=== PATIENT | female | born 1985 | race Caucasian/White ===

== ENCOUNTER 2016-05-19 23:39 | Emergency (ER) | payer OTHER ==
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
[2016-05-20 03:44] VITALS: BP 110/79
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
== END 2016-05-20 03:59 | disposition home or self-care (01) ==
LOC: ED 23:39
DX: S00.93XA Contusion of unspecified part of head, initial encounter (principal); M54.2 Cervicalgia; R51 Headache; F17.210 Nicotine dependence, cigarettes, uncomplicated; K08.89 Other specified disorders of teeth and supporting structures; Y09 Assault by unspecified means; Y93.9 Activity, unspecified; Y92.9 Unspecified place or not applicable
CPT/HCPCS: 70450; 70486; 72125; 99283

== ENCOUNTER → 2016-11-06 07:58 | Emergency (ER) | payer OTHER ==
[~2016-11-06 07:58] MED LIST: Ketorolac INJ* 30 MG/ML 1 ML VIAL IV ONE; NS 0.9% 1000 ML* 1,000 ML IV ONE
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
[2016-11-06 09:34] LABS: Hematocrit 35 % (35-47); Hemoglobin 11.1 g/dl (12.0-16.0); Mean Corpuscular HGB Conc 32 g/dl (31-36); Mean Corpuscular Hemoglobin 24 pg (27-31); Mean Corpuscular Volume 77 fL (80-97); Mean Platelet Volume 9 um3 (7.4-10.4); Red Blood Count 4.55 10^6/ul (4.0-5.4); Red Cell Distribution Width 15 % (10.5-15); White Blood Count 9.4 10^3/ul (3.5-10.8)
[2016-11-06 09:51] LABS: ALT 8 U/L (7-52); AST 11 U/L (13-39); Albumin 4.1 g/dL (3.2-5.2); Alkaline Phosphatase 47 U/L (34-104); Anion Gap 7 mmol/L (2-11); BUN/Creatinine Ratio 13.4 (8-20); Blood Urea Nitrogen 11 mg/dL (6-24); CO2 Carbon Dioxide 25 mmol/L (22-32); Calcium 8.9 mg/dL (8.6-10.3); Chloride 105 mmol/L (101-111); EGFR African American 106.8 (>60); Globulin 2.9 g/dL (2-4); Glucose 75 mg/dL (70-100); Potassium 3.5 mmol/L (3.5-5.0); Sodium 137 mmol/L (133-145)
[2016-11-06 10:12] LABS: Alcohol < 10 mg/dL (<10)
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
[2016-11-06 12:21] VITALS: BP 110/79
[2016-11-06 13:03] LABS: Urine Bacteria 1+ (Absent); Urine Bilirubin Negative (Negative); Urine Glucose Negative (Negative); Urine Nitrite Positive (Negative)
[2016-11-06 13:14] LABS: Benzodiazepine Urine Screen None Detected (None Detect)
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
--- NOTE | 2016-11-08 09:23 | PN ---
Progress Note - Progress Note Date of Service: 11/08/16 Note: Patient urine grew E coli >100,000. patient placed on cipro will wait for final cultures.
== END | disposition home or self-care (01) ==
LOC: ED 07:58
DX: S00.93XA Contusion of unspecified part of head, initial encounter (principal); M54.2 Cervicalgia; F19.10 Other psychoactive substance abuse, uncomplicated; W18.2XXA Fall in (into) shower or empty bathtub, initial encounter; Y93.9 Activity, unspecified; Y92.9 Unspecified place or not applicable
CPT/HCPCS: 36415; 70450; 72125; 72170; 80053; 80307; 80320; 81003; 81015; 84702; 85025; 87077; 87086; 87186; 96374; 99282; G0480; J1885

== ENCOUNTER 2016-12-13 18:06 | Emergency (ER) | payer OTHER ==
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
--- NOTE | 2016-12-13 18:50 | RAD ---
INDICATION: Chest injury COMPARISON: Chest x-ray July 17, 2013 TECHNIQUE: An AP portable view obtained at 1846 hours is submitted. FINDINGS: Bones/Soft Tissues: There are no acute bony findings. A detailed rib series is a more sensitive means to evaluate for rib fractures. Cardiomediastinal: The cardiomediastinal silhouette is normal. There is minimal mediastinal shift to the right Lungs: There are no infiltrates. There is a 50% left sided pneumothorax. Pleura: There are no pleural effusions. Other: None IMPRESSION: LARGE LEFT PNEUMOTHORAX UNDER MILD TENSION. Findings called to ED.
[2016-12-13] MEDS ORDERED: Morphine INJ* 2 MG/ML 1 ML CARPUJECT IV ONE ×2 (19:17→20:46)
[2016-12-13 19:47] LABS: Hematocrit 38 % (35-47); Hemoglobin 11.8 g/dl (12.0-16.0); Mean Corpuscular HGB Conc 31 g/dl (31-36); Mean Corpuscular Hemoglobin 23 pg (27-31); Mean Corpuscular Volume 74 fL (80-97); Mean Platelet Volume 9 um3 (7.4-10.4); Red Cell Distribution Width 15 % (10.5-15); White Blood Count 24.8 10^3/ul (3.5-10.8)
[2016-12-13 19:49] LABS: Add Diff/Slide Review? Slide Review Added; Comments Flag Yes
[2016-12-13 20:02] LABS: Albumin 4.5 g/dL (3.2-5.2); BUN/Creatinine Ratio 14.6 (8-20); Calcium 9.6 mg/dL (8.6-10.3); EGFR Non-African American 82.4 (>60); Globulin 3.4 g/dL (2-4); Magnesium 2.5 mg/dL (1.9-2.7); Potassium 3.7 mmol/L (3.5-5.0); Total Bilirubin 0.3 mg/dL (0.2-1.0); Total Protein 7.9 g/dL (6.4-8.9)
[2016-12-13] MEDS ORDERED: Iohexol 300* (CONTRAST) 10 ML SDV IV ONE (20:11)
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
[2016-12-13 21:24] VITALS: BP 125/78
== END 2016-12-13 21:20 | disposition short-term general hospital (02) ==
LOC: ED 18:06
DX: S27.0XXA Traumatic pneumothorax, initial encounter (principal); R51 Headache; F17.210 Nicotine dependence, cigarettes, uncomplicated; F41.8 Other specified anxiety disorders; F31.9 Bipolar disorder, unspecified; F43.10 Post-traumatic stress disorder, unspecified; V03.90XA Pedestrian on foot injured in collision with car, pick-up truck or van, unspecified whether traffic or nontraffic accident, initial encounter; Y92.89 Other specified places as the place of occurrence of the external cause; Z53.29 Procedure and treatment not carried out because of patient's decision for other reasons
CPT/HCPCS: 36415; 71010; 80053; 82550; 82553; 83605; 83735; 83874; 83880; 84484; 85025; 85610; 85730; 96374; 96375; 96376; 99283; J2270

== ENCOUNTER 2017-01-11 16:49 | Emergency (ER) | payer OTHER ==
[2017-01-11 17:13] VITALS: BP 144/69
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
== END 2017-01-11 19:27 | disposition home or self-care (01) ==
LOC: UCEAST 16:49
DX: K08.89 Other specified disorders of teeth and supporting structures (principal); N39.0 Urinary tract infection, site not specified; Z32.02 Encounter for pregnancy test, result negative; R03.0 Elevated blood-pressure reading, without diagnosis of hypertension; Z87.440 Personal history of urinary (tract) infections; R07.81 Pleurodynia; R51 Headache; F12.90 Cannabis use, unspecified, uncomplicated; F17.210 Nicotine dependence, cigarettes, uncomplicated
CPT/HCPCS: 81003; 84702; 87086; 99212; G0463

== ENCOUNTER 2017-10-11 14:37 | Emergency (ER) | payer SELFPAY ==
[2017-10-11] MEDS ORDERED: Ibuprofen TAB* 400 MG PO ONE (16:00)
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
[2017-10-11 17:46] VITALS: BP 114/75
== END 2017-10-11 17:45 | disposition home or self-care (01) ==
LOC: ED 14:37
DX: S43.402A Unspecified sprain of left shoulder joint, initial encounter (principal); S63.615A Unspecified sprain of left ring finger, initial encounter; S50.11XA Contusion of right forearm, initial encounter; S20.219A Contusion of unspecified front wall of thorax, initial encounter; S00.11XA Contusion of right eyelid and periocular area, initial encounter; S80.211A Abrasion, right knee, initial encounter; S60.415A Abrasion of left ring finger, initial encounter; Y04.2XXA Assault by strike against or bumped into by another person, initial encounter; Y93.9 Activity, unspecified; Y92.003 Bedroom of unspecified non-institutional (private) residence as the place of occurrence of the external cause; J44.9 Chronic obstructive pulmonary disease, unspecified; F41.9 Anxiety disorder, unspecified; F32.9 Major depressive disorder, single episode, unspecified; Z82.49 Family history of ischemic heart disease and other diseases of the circulatory system; Z91.030 Bee allergy status; Z91.040 Latex allergy status; Z91.018 Allergy to other foods; Z88.8 Allergy status to other drugs, medicaments and biological substances; Z83.3 Family history of diabetes mellitus; Z84.1 Family history of disorders of kidney and ureter; Z83.6 Family history of other diseases of the respiratory system; Z81.8 Family history of other mental and behavioral disorders; F17.210 Nicotine dependence, cigarettes, uncomplicated
CPT/HCPCS: 99282; A9270-GY

== ENCOUNTER 2018-09-01 14:02 | Emergency (ER) | payer OTHER ==
[2018-09-01 14:59] VITALS: BP 136/88
[2018-09-01] MEDS ORDERED: Ipratropium 0.5MG/2.5ML NEB* 0.5 MG/2.5 ML NEB.SOLN INH ONE (15:48)
[2018-09-01] MEDS ORDERED: Albuterol 2.5 MG/3 ML NEB.SOL* (0.083%) INH ONE (15:48)
[2018-09-01] MEDS ORDERED: predniSONE TAB* 20 MG PO ONE (15:48)
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
== END 2018-09-01 16:40 | disposition home or self-care (01) ==
LOC: UCEAST 14:02
DX: J20.9 Acute bronchitis, unspecified (principal); J45.909 Unspecified asthma, uncomplicated; F41.9 Anxiety disorder, unspecified; F32.9 Major depressive disorder, single episode, unspecified; Z91.030 Bee allergy status; Z91.040 Latex allergy status; Z88.8 Allergy status to other drugs, medicaments and biological substances; Z91.018 Allergy to other foods; Z91.09 Other allergy status, other than to drugs and biological substances; F17.210 Nicotine dependence, cigarettes, uncomplicated
CPT/HCPCS: 71046; 81003; 99212; G0463; J7512

== ENCOUNTER 2019-01-21 19:07 | Emergency (ER) | payer OTHER ==
--- OUTSIDE RECORDS SUMMARY | 2019-01-21 19:14 | XMS REPORT | Summary of Care ---
:1985 Author Organization [facility] Address 1 [facility] [place] [address] Care Team Providers Name Role Phone Sean Montano DO Primary Care Provider Reason for Visit Reason Comments Abnormal Liver Enzyme New pt. referred by Dr. Montano for elevated LFTs. Refer to Department Only (Routine) Status Reason Specialty Diagnoses / Referred By Referred To Procedures Contact Contact Closed Gastroenterology Diagnoses Elevated LFTs Sean Montano DO [address] Gastroenterology/ [place] [address] Hepatology Phone: [address] [place] [address] [place] [address] Encounter Details Date Type Department Care Team Description 12/10/2018 Office Visit Geovanna Gamez, Elevated LFTs Gastroenterology/Hepa Tootie Davis NP (Primary Dx) tology [address] [place] [address] [place] [address] [phone] Allergies Active Allergy Reactions Severity Noted Date Comments Bee Sting Swelling 12/14/2016 Ondansetron Respiratory Reaction 12/14/2016 Pt states her throat swelled when given IVP. documented as of this encounter (statuses as of 12/10/2018) Medications Medication Sig Dispensed Refills Start Date End Date Status Doxepin HCl, Take 50 mg by 0 Active Antipruritic, mouth EVERY (DOXEPIN HCL EX) BEDTIME. albuterol Take 2 Puffs by 0 Active (PROVENTIL,VENTOLIN) inhalation FOUR 90 mcg/act TIMES DAILY. fluticasone-salmetero Take 1 INHL by 60 Each 0 07/01/2018 Active l diskus (ADVAIR) inhalation 500-50 MCG/DOSE TWICE DAILY. Inhalation AEROSOL POWDER, BREATH ACTIVATEDIndications: Asthma, unspecified asthma severity, unspecified whether complicated, unspecified whether persistent hydrOXYzine HCL Take 20 mg by 0 Active (ATARAX) 10 MG Oral mouth DAILY. Tab ferrous sulfate 325 Take 1 Tab by 30 Tab 0 08/12/2018 Active (65 Fe) MG Oral Tab mouth EVERY OTHER DAY. methocarbamol TAKE 1 TABLET 120 Tab 0 09/08/2018 Active (ROBAXIN) 500 MG Oral BY MOUTH FOUR Tab TIMES DAILY Omeprazole 40 MG Oral TAKE 1 CAPSULE 30 Cap 0 09/08/2018 Active CAPSULE DELAYED BY MOUTH EVERY RELEASEIndications: DAY BEFORE Gastroesophageal BREAKFAST reflux disease, esophagitis presence not specified Fluoxetine HCl 40 MG Take 2 Caps by 0 Active Oral Cap mouth DAILY. FLUOXETINE HCL, PMDD, Take 40 mg by 0 12/11/19 Discontinued PO mouth DAILY. 19 documented as of this encounter (statuses as of 12/10/2018) Active Problems Problem Noted Date Traumatic pneumothorax 12/14/2016 Closed fracture of multiple ribs of left side 12/14/2016 UTI (urinary tract infection) 12/14/2016 Abdominal pain, unspecified site 04/17/2006 Asthma documented as of this encounter (statuses as of 12/10/2018) Immunizations Name Administration Dates Next Due Influenza Virus Vaccine Pres Free 6-35 Months 12/16/2016 documented as of this encounter Social History Tobacco Use Types Packs/Day Years Used Date Current Some Day Smoker Cigarettes Smokeless Tobacco: Former User Comments: just e cig now. Alcohol Use Drinks/Week oz/Week Comments No Sex Assigned at Date Recorded Not on file Job Start Date Occupation Industry Not on file Not on file Not on file Travel History Travel Start Travel End No recent travel history available. documented as of this encounter Last Filed Vital Signs Vital Sign Reading Time Taken Comments Blood Pressure 108/68 12/10/2018 11:14 AM EDT Pulse 84 12/10/2018 11:14 AM EDT Temperature 36.7 12/10/2018 11:14 AM EDT C (98.1 F) Respiratory Rate - - Oxygen Saturation - - Inhaled Oxygen Concentration - - Weight 86.9 kg (191 lb 8 oz) 12/10/2018 11:14 AM EDT Height 167.6 cm (5' 6") 12/10/2018 11:14 AM EDT Body Mass Index 30.91 12/10/2018 11:14 AM EDT documented in this encounter Patient Instructions Patient InstructionsTootie Gamez NP - 12/10/2018 11:20 AM EDT1. Would advise we recheck the liver enzymes again in 2 month 2. Avoid high sugar foods, avoid the lemonade and noodles as discussed 3. Follow up after the above Thank you for choosing the [facility] for your needs today! -Tootie Gamez N.P. , Please call if you need to cancel or change your appt. time. Thank you for choosing [facility] for your health care needs, and for consulting with [facility] today. You may receive a survey following this visit, or after an upcoming hospital stay. As easy as it is to feel overloaded with surveys, we are required to send them out randomly and they do provide important feedback so that we may serve your needs in the best way. Please do take the few minutes required to complete the survey if you receive one. We get them too, after seeing the doctor, and they only take a few minutes to complete. documented in this encounter Progress Notes Tootie Gamez NP - 12/10/2018 11:20 AM EDT PATIENT:Antonia Arriaga : 1985 DATE OF SERVICE: 12/10/2018 Chief Complaint Patient presents with Abnormal Liver Enzyme New pt. referred by Dr. Montano for elevated LFTs. SUBJECTIVE: Antonia Arriaga is a very pleasant 33-y.o. female who presents to us today at the request of Sean Montano for abnormal liver enzymes. The elevations were noted during routine bloodwork. There has been no history of clinical hepatitis with jaundice. There are new medications, she reports being on an antibiotic briefly a few weeks ago. She also reports having some alcohol around that time as well. 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 Previous labs have ruled out viral hepatitis, iron overload, celiac, alpha 1 antitrypsin, myositis, thyroid dysfunction, and julianna torres. Denies abdominal pain,heartburn, dysphagia, fatigue, nausea, vomiting, melena, hematemesis, hematochezia, constipation, diarrhea, jaundice, fevers, chills, night sweats, weight loss, easy bruising, chest pain, shortness of breath, dysuria, hematuria, pyuria, joint pains, acholic stools, dark urine or systemic pruritis. Component Latest Ref Rng & Units 12/13/2016 07/01/2018 11/25/2018 12/01/2018 11:04 PM 2:31 PM 12:06 PM 3:13 PM Glucose (Lab) 70 - 99 mg/dl 120 (H) 73 108 (H) 114 (H) Protein,Total 6.3 - 8.2 g/dl 7.7 8.0 7.7 9.0 (H) Total Bilirubin 0.0 - 1.1 MG/DL 0.5 0.5 0.9 1.0 AST 15 - 46 U/L 29 49 (H) 52 (H) 64 (H) ALT 9 - 52 U/L 30 24 446 (H) 164 (H) ALKALINE PHOSPHATASE 40 - 150 U/L 58 70 199 (H) 142 Past Medical History: Diagnosis Date Asthma Pneumothorax Rib fracture Past Surgical History: Procedure Laterality Date SECTION NEC 4 times. LAPAROSCOPIC TUBAL LIGATION Social History Socioeconomic History Marital status: Single Spouse name: Not on file Number of children: Not on file Years of education: Not on file Highest education level: Not on file Occupational History Not on file Social Needs Financial resource strain: Not on file Food insecurity: Worry: Not on file Inability: Not on file Transportation needs: Medical: Not on file Non-medical: Not on file Tobacco Use Smoking status: Current Some Day Smoker Types: Cigarettes Smokeless tobacco: Former User Tobacco comment: just e cig now. Substance and Sexual Activity Alcohol use: No Drug use: Yes Types: Marijuana Comment: in past: meth, cocaine. did IV Sexual activity: Yes Partners: Male control/protection: Surgical Lifestyle Physical activity: Days per week: Not on file Minutes per session: Not on file Stress: Not on file Relationships Social connections: Talks on phone: Not on file Gets together: Not on file Attends pentecostal service: Not on file Active member of club or organization: Not on file Attends meetings of clubs or organizations: Not on file Relationship status: Not on file Intimate partner violence: Fear of current or ex partner: Not on file Emotionally abused: Not on file Physically abused: Not on file Forced sexual activity: Not on file Other Topics Concern Back Care Not Asked Bike Helmet Not Asked Blood Transfusions Not Asked Caffeine Concern Not Asked Exercise Not Asked Hobby Hazards Not Asked International Travel Not Asked Service Not Asked Occupational Exposure Not Asked Seat Belt Not Asked Self-Exams Not Asked Sleep Concern Not Asked Special Diet Not Asked Stress Concern Not Asked Weight Concern Not Asked Social History Narrative Not working 4 children Bee sting and Zofran [ondansetron] Current Outpatient Medications Medication Sig albuterol (PROVENTIL,VENTOLIN) 90 mcg/act Take 2 Puffs by inhalation FOUR TIMES DAILY. Doxepin HCl, Antipruritic, (DOXEPIN HCL EX) Take 50 mg by mouth EVERY BEDTIME. ferrous sulfate 325 (65 Fe) MG Oral Tab Take 1 Tab by mouth EVERY OTHER DAY. Fluoxetine HCl 40 MG Oral Cap Take 2 Caps by mouth DAILY. fluticasone-salmeterol diskus (ADVAIR) 500-50 MCG/DOSE Inhalation AEROSOL POWDER, BREATH ACTIVATED Take 1 INHL by inhalation TWICE DAILY. hydrOXYzine HCL (ATARAX) 10 MG Oral Tab Take 20 mg by mouth DAILY. methocarbamol (ROBAXIN) 500 MG Oral Tab TAKE 1 TABLET BY MOUTH FOUR TIMES DAILY Omeprazole 40 MG Oral CAPSULE DELAYED RELEASE TAKE 1 CAPSULE BY MOUTH EVERY DAY BEFORE BREAKFAST No current facility-administered medications for this visit. All remaining review of systems was negative except for as noted in the history of present illness/subjective. OBJECTIVE: BP 108/68 | Pulse 84 | Temp 98.1 F (36.7 C) | Ht 5' 6" (1.676 m) | Wt 191 lb 8 oz (86.9 kg) | BMI 30.91 kg/m Physical Examination: GENERAL: alert, oriented, no acute distress. HEENT: No scleral icterus, MMM Psych: Affect normal Neck: no lymphadenopathy LUNGS: clear to auscultation bilaterally. HEART: regular rhythm, no murmurs, no gallops, no rubs. ABDOMEN: general exam: soft, non-tender, non-distended, without masses or organomegaly, normal active bowel sounds, Adame's sign negative. Extremities: no edema Skin: clear Neuro: gait normal, a&o x 3 RECTAL: exam deferred. Impression/Plan ICD-9-CM ICD-10-CM 1. Elevated LFTs 790.6 R94.5 REFER TO GI LIVER FUNCTION PROFILE Patient Instructions 1. Would advise we recheck the liver enzymes again in 2 month 2. Avoid high sugar foods, avoid the lemonade and noodles as discussed 3. Follow up after the above Thank you for choosing the [facility] for your needs today! -Tootie Gamez N.P. , Please call if you need to cancel or change your appt. time. Thank you for choosing [facility] for your health care needs, and for consulting with [facility] today. You may receive a survey following this visit, or after an upcoming hospital stay. As easy as it is to feel overloaded with surveys, we are required to send them out randomly and they do provide important feedback so that we may serve your needs in the best way. Please do take the few minutes required to complete the survey if you receive one. We get them too, after seeing the doctor, and they only take a few minutes to complete. AUTHOR: Tootie Gamez NP Section of Gastroenterology 12/10/2018 12:29 documented in this encounter Plan of Treatment Date Type Specialty Care Team Description 02/08/2019 Lab Internal Medicine 02/15/2019 Office Visit Gastroenterology Tootie Gamez NP [address] [facility] [place] [address] [phone] Name Type Priority Associated Diagnoses Order Schedule LIVER FUNCTION PROFILE Lab Routine Elevated LFTs Expected: 12/10/2018 (Approximate), Expires: 03/11/2019 Health Maintenance Due Date Last Done Comments PAP SMEAR 1985 PNEUMOCOCCAL 0-64 YRS (1 of 1 - 11/27/1993 PPSV23) DEPRESSION SCREENING 1999 INFLUENZA VACCINE (#1) 2018 HIV SCREENING Completed 07/01/2018 HPV IMMUNIZATION SERIES Aged Out No longer eligible based on patient's age to complete this topic MENINGOCOCCAL VACCINE IMM Aged Out No longer eligible based on patient's age to complete this topic documented as of this encounter Results Not on filedocumented in this encounter Visit Diagnoses Diagnosis Elevated LFTs - Primary Other abnormal blood chemistry documented in this encounter documented as of this encounter
--- OUTSIDE RECORDS SUMMARY | 2019-01-21 19:14 | XMS REPORT | Continuity of Care Document ---
:1985 External Reference #:[id number] Author Name Wilton Crespo MD (transmitted by agent of provider Marian Smith) Address [address] [place] [address] Care Team Providers Name Role Phone [facility] - Care Team Information Filter Screen Cleaner Mental Health Sean Montano D.O. - Family Medicine Care Team Information Filter Screen Cleaner [phone] Problems Active Problems Provider Date Tension-type headache Jim Barksdale M.D. Onset: 08/23/2008 Head Neck & Trunk Problem Other Jim Barksdale M.D. Onset: 08/23/2008 Low back pain Jim Barksdale M.D. Onset: 08/23/2008 Tension-type headache Jim Barksdale M.D. Onset: 08/23/2008 Chronic hepatitis C Rodney Arriaga M.D. Onset: 02/16/2015 Migraine Rodney Arriaga M.D. Onset: 02/16/2015 Sprain, tarsometatarsal joint Wilton Crespo MD Onset: 01/04/2019 Traumatic pneumothorax without open wound Ash Richardson M.D. Onset: 12/17 into thorax Major depressive disorder, single Ash Richardson M.D. Onset: 05/13/2016 episode, unspecified Migraine without aura, not refractory Ash Richardson M.D. Onset: 2016 Social History Type Date Description Comments Sex Unknown ETOH Use Denies alcohol use Tobacco Use Start: Unknown Patient is a current He used to smoke smoker, smokes some 1.5 PPD x 4 yeras days then smokes 1 pack every 1.5 weeks for 14 years Recreational Drug Use Former Drug User Marijuan, a couple times a week. Quit in 2208 Smoking Status Reviewed: 01/04/19 Patient is a current He used to smoke smoker, smokes some 1.5 PPD x 4 yeras days then smokes 1 pack every 1.5 weeks for 14 years Exercise Type/Frequency Walks daily Allergies, Adverse Reactions, Alerts Active Allergies Reaction Severity Comments Date Vicodin 08/23/2008 Zofran 08/23/2008 Medications Active Medications SIG Qnty Indications Ordering Provider Date Meloxicam 1 tab by mouth 90tabs Wilton Crespo MD 01/04/2019 7.5mg Tablets qdaily with food, as needed Oxycodone HCL 1 by mouth every 60tabs S27.0xxA Ash Richardson, 2016 5mg 6 hours as M.DVinayak Tablets needed Medications Administered in Office Medication SIG Qnty Indications Ordering Provider Date MUSTAPHA Richardson M.D. 03/19/2017 Injection Immunizations Description No Information Available Vital Signs Date Vital Result Comment 01/04/2019 3:31pm Height 63 inches 5'3" Weight 187.00 lb Heart Rate 93 /min BP Systolic 138 mmHg BP Diastolic 70 mmHg Body Temperature 98.8 F Pain Level 10 BMI (Body Mass Index) 33.1 kg/m2 12/17/2016 1:19pm Height 62.50 inches 5'2.50" Weight 153.50 lb Heart Rate 84 /min BP Systolic 126 mmHg BP Diastolic 68 mmHg Body Temperature 98.4 F O2 % BldC Oximetry 96 % BMI (Body Mass Index) 27.6 kg/m2 Results Description No Information Available Procedures Description No Information Available Medical Devices Description No Information Available Encounters Type Date Location Provider Dx Diagnosis Office Visit 11/20/2018 [facility] [place] [id number] Acute viral 1:22p rhonda Schmitz M.D. hepatitis, Hospitalists unspecified Office Visit 11/19/2018 [facility] [place] Acute viral 1:22p rhonda Schmitz M.D. hepatitis, Hospitalists unspecified Assessments Date Code Description Provider 01/04/2019 S93.621A Sprain of tarsometatarsal ligament of right Wilton Crespo MD foot, initial encounter 11/20/2018 [id number] Acute viral hepatitis, unspecified Flor Aly M.D. 11/19/2018 B17.9 Acute viral hepatitis, unspecified Flor Aly M.D. Plan of Treatment 01/04/2019 - Wilton Crespo, MDS93.621A Sprain of tarsometatarsal ligament of right foot, initial encounterNew Xrays:MRI Lower Extremity Right W/O, Ordered: 01/04/19Follow up:Follow Up: after testing / imaging is completed Functional Status Description No Information Available Mental Status Description No Information Available Referrals Description No Information Available
--- OUTSIDE RECORDS SUMMARY | 2019-01-21 19:14 | XMS REPORT | Summary of Care ---
:1985 Author Organization [facility] Address [address] [facility] [place] [address] Care Team Providers Name Role Phone Sean Montano DO Primary Care Provider Reason for Referral Refer to Department Only (Routine) Status Reason Specialty Diagnoses / Referred By Referred To Procedures Contact Contact Pending Review Gastroenterology Diagnoses Elevated LFTs Sean Montano [place] DO Gastroenterolog [address] [place], [place] [address] [address] [place], [place] Phone: [phone] Phone: Scheduling Instructions Is the patient on cpap machine?No Is the patient on oxygen?No BP 118/68 (BP Location: Left arm, Patient Position: Sitting) | Pulse 98 | Ht 5' 6" (1.676 m) | Wt 185 lb 6.4 oz (84.1 kg) | SpO2 98% | BMI 29.92 kg/m BMI Readings from Last 4 Encounters: 11/25/18 : 29.92 kg/m 08/12/18 : 29.75 kg/m 07/01/18 : 26.92 kg/m 12/13/16 : 25.02 kg/m Controlled Substance Medications: Anticoagulant Medications: Psychiatric/Antianxiety Medications: hydrOXYzine HCL Antiretroviral Medications: Reason for Visit Reason Comments Transitional Care Management here for follow up/ [facility]; states continues to feel dizziness periodically'; but overall feel much better Encounter Details Date Type Department Care Team Description 11/25/2018 Office Visit [facility] Sean Montano DO Elevated LFTs (Primary Practice [address]) [address] [place] [address] [place] [address] [phone] Allergies Active Allergy Reactions Severity Noted Date Comments Bee Sting Swelling 12/14/2016 Ondansetron Respiratory Reaction 12/14/2016 Pt states her throat swelled when given IVP. documented as of this encounter (statuses as of 11/25/2018) Medications Medication Sig Dispensed Refills Start Date End Date Status FLUOXETINE HCL, PMDD, Take 40 mg by 0 Active PO mouth DAILY. Doxepin HCl, 50 mg by Apply 0 Active Antipruritic, (DOXEPIN externally route HCL EX) DAILY. albuterol Take 2 Puffs by 0 Active (PROVENTIL,VENTOLIN) 90 inhalation FOUR mcg/act TIMES DAILY. fluticasone-salmeterol Take 1 INHL by 60 Each 0 07/01/2018 Active diskus (ADVAIR) 500-50 inhalation TWICE MCG/DOSE Inhalation DAILY. AEROSOL POWDER, BREATH ACTIVATEDIndications: Asthma, unspecified asthma severity, unspecified whether complicated, unspecified whether persistent hydrOXYzine HCL Take 10 mg by 0 Active (ATARAX) 10 MG Oral Tab mouth TWICE DAILY. ferrous sulfate 325 (65 Take 1 Tab by 30 Tab 0 08/12/2018 Active Fe) MG Oral Tab mouth EVERY OTHER DAY. methocarbamol (ROBAXIN) TAKE 1 TABLET BY 120 Tab 0 09/08/2018 Active 500 MG Oral Tab MOUTH FOUR TIMES DAILY Omeprazole 40 MG Oral TAKE 1 CAPSULE BY 30 Cap 0 09/08/2018 Active CAPSULE DELAYED MOUTH EVERY DAY RELEASEIndications: BEFORE BREAKFAST Gastroesophageal reflux disease, esophagitis presence not specified documented as of this encounter (statuses as of 11/25/2018) Active Problems Problem Noted Date Traumatic pneumothorax 12/14/2016 Closed fracture of multiple ribs of left side 12/14/2016 UTI (urinary tract infection) 12/14/2016 Abdominal pain, unspecified site 04/17/2006 Asthma documented as of this encounter (statuses as of 11/25/2018) Immunizations Name Administration Dates Next Due Influenza Virus Vaccine Pres Free 6-35 Months 12/16/2016 documented as of this encounter Social History Tobacco Use Types Packs/Day Years Used Date Current Every Day Smoker Cigarettes Smokeless Tobacco: Former User [...] Sign Reading Time Taken Comments Blood Pressure 118/68 11/25/2018 11:21 AM EDT Pulse 98 11/25/2018 11:21 AM EDT Temperature - - Respiratory Rate - - Oxygen Saturation 98% 11/25/2018 11:21 AM EDT Inhaled Oxygen Concentration - - Weight 84.1 kg (185 lb 6.4 oz) 11/25/2018 11:21 AM EDT Height 167.6 cm (5' 6") 11/25/2018 11:21 AM EDT Body Mass Index 29.92 11/25/2018 11:21 AM EDT documented in this encounter Progress Notes Sean Montano, DO - 11/25/2018 11:20 AM EDT PATIENT: Antonia Arriaga : 1985 DATE OF SERVICE: 11/25/2018 CHIEF COMPLAINT: Chief Complaint Patient presents with Transitional Care Management here for follow up/ TCM went [facility] and then to [place] left [facility] on 11/20; states continues to feel dizziness periodically'; but overall feel much better Subjective HISTORY OF PRESENT ILLNESS: Antonia Arriaga is a 32-y.o. female. [facility] follow [facility] DC summary not available Left AMA Reason she went to hospital was epigastric pain, feeling low in energy and diarrhea Found to have markedly elevated Liver enymes Hep panel, autoimmune work up, ceruloplasmin, %saturation negative. GI at [facility] though viral. [place] spot neg. ebv not done cmv negative Mri liver showed periportal edema, small amount of ascites around liver and hepatomegaly. Symptoms resolved but ama left hospital. LFt's were still markedly up on 11/20/18 Past Medical History: Diagnosis Date Asthma Pneumothorax Rib fracture History reviewed. No pertinent family history. Current Outpatient Medications Medication Sig albuterol (PROVENTIL,VENTOLIN) 90 mcg/act Take 2 Puffs by inhalation FOUR TIMES DAILY. Doxepin HCl, Antipruritic, (DOXEPIN HCL EX) 50 mg by Apply externally route DAILY. ferrous sulfate 325 (65 Fe) MG Oral Tab Take 1 Tab by mouth EVERY OTHER DAY. FLUOXETINE HCL, PMDD, PO Take 40 mg by mouth DAILY. fluticasone-salmeterol diskus (ADVAIR) 500-50 MCG/DOSE Inhalation AEROSOL POWDER, BREATH ACTIVATED Take 1 INHL by inhalation TWICE DAILY. hydrOXYzine HCL (ATARAX) 10 MG Oral Tab Take 10 mg by mouth TWICE DAILY. methocarbamol (ROBAXIN) 500 MG Oral Tab TAKE 1 TABLET BY MOUTH FOUR TIMES DAILY Omeprazole 40 MG Oral CAPSULE DELAYED RELEASE TAKE 1 CAPSULE BY MOUTH EVERY DAY BEFORE BREAKFAST No current facility-administered medications for this visit. Allergies Allergen Reactions Bee Sting Swelling Zofran [Ondansetron] Respiratory Reaction Pt states her throat swelled when given IVP. Social History Socioeconomic History Marital status: Single [...] on file Tobacco Use Smoking status: Current Every Day Smoker Types: Cigarettes Smokeless tobacco: Former [...] file Gets together: Not on file Attends restorationist service: Not on file Active member of [...] Social History Narrative Not working 4 children REVIEW OF SYSTEMS: Review of Systems Constitutional: Negative for fever. Cardiovascular: Negative for chest pain. Gastrointestinal: Negative for abdominal pain, blood in stool, constipation, diarrhea, heartburn, melena, nausea and vomiting. Objective PHYSICAL EXAM: VITALS: BP 118/68 (BP Location: Left arm, Patient Position: Sitting) | Pulse 98 | Ht 5' 6" (1.676m) | Wt 185 lb 6.4 oz (84.1 kg) | SpO2 98% | BMI 29.92 kg/m Body mass index is 29.92 kg/m. Physical Exam Constitutional: She appears well-nourished. No distress. HENT: Head: Normocephalic and atraumatic. Mouth/Throat: Oropharynx is clear and moist. No oropharyngeal exudate. Cardiovascular: Normal rate. Pulmonary/Chest: Effort normal and breath sounds normal. Abdominal: She exhibits no distension and no mass. There is no tenderness. There is no rebound and no guarding. Skin: She is not diaphoretic. ASSESSMENT / IMPRESSION: ICD-9-CM ICD-10-CM 1. Elevated LFTs 790.6 R94.5 COMPREHENSIVE METABOLIC PANEL REFER TO GI THYROID STIMULATING HORMONE CREATINE KINASE ALPHA 1 ANTITRYPSIN CELIAC DISEASE PANEL CELIAC DISEASE PANEL ALPHA 1 ANTITRYPSIN CREATINE KINASE THYROID STIMULATING HORMONE COMPREHENSIVE METABOLIC PANEL CELIAC DISEASE PANEL ANA PENALOZA VIRUS ANTIBODY PANEL ANA PENALOZA VIRUS ANTIBODY PANEL INR normal at [place] Plan Trend LFT's. They can lag behind and clinically patient can be better. But 5 days now so expect someimprovement. Avoid tylenol Avoid alcohol Do work up not seen at [place]: tsh, cpk, alpha 1 antitrypsin, celiac and ebv See GI. Uncertain etiology Author: Sean Montano DO 11/25/2018 13:08 documented in this encounter Plan of Treatment Date Type Specialty Care Team Description 12/10/2018 Office Visit Gastroenterology Tootie Gamez, [address] [place] [address] Name Type Priority Associated Diagnoses Date/Time COMPREHENSIVE METABOLIC Lab Routine Elevated LFTs 11/25/2018 12:06 PM EDT PANEL THYROID STIMULATING HORMONE Lab Routine Elevated LFTs 11/25/2018 12:06 PM EDT CREATINE KINASE Lab Routine Elevated LFTs 11/25/2018 12:06 PM EDT ALPHA 1 ANTITRYPSIN Lab Routine Elevated LFTs 11/25/2018 12:06 PM EDT CELIAC DISEASE PANEL Lab Routine Elevated LFTs 11/25/2018 12:06 PM EDT CELIAC DISEASE PANEL Lab Routine Elevated LFTs 11/25/2018 12:06 PM EDT ANA PENALOZA VIRUS ANTIBODY Lab Routine Elevated LFTs 11/25/2018 12:06 PM EDT PANEL Name Type Priority Associated Diagnoses Order Schedule COMPREHENSIVE METABOLIC Lab Routine Elevated LFTs Expected: 11/25/2018 PANEL (Approximate), Expires: 11/26/2019 THYROID STIMULATING HORMONE Lab Routine Elevated LFTs Expected: 11/25/2018 (Approximate), Expires: 11/26/2019 CREATINE KINASE Lab Routine Elevated LFTs Expected: 11/25/2018 (Approximate), Expires: 11/26/2019 ALPHA 1 ANTITRYPSIN Lab Routine Elevated LFTs Expected: 11/25/2018 (Approximate), Expires: 11/26/2019 CELIAC DISEASE PANEL Lab Routine Elevated LFTs Expected: 11/25/2018 (Approximate), Expires: 11/26/2019 ANA PENALOZA VIRUS ANTIBODY Lab Routine Elevated LFTs Expected: 11/25/2018 PANEL (Approximate), Expires: 11/26/2019 Name Type Priority Associated Diagnoses Order Schedule REFER TO GI Referral Routine Elevated LFTs Expected: 11/25/2018, Expires: 11/26/2019 Health Maintenance Due Date Last Done Comments [...] abnormal blood chemistry documented in this encounter Insurance Payer Benefit Plan / Subscriber ID Effective Dates Phone Address Type Group [facility] xxxxxxxxxxx 2017-Present Jason documented as of this encounter
[2019-01-21 19:22] VITALS: BP 115/72
--- NOTE | 2019-01-21 19:43 | UC ---
Ear Complaint HPI - HPI Summary HPI Summary: 33-year-old female who has had cold symptoms for greater than one week and now has bilateral earache as well as sinus pressure and sinus headache. - History of Current Complaint Chief Complaint: UCRespiratory Stated Complaint: EAR ACHE, AND SORE THROAT Time Seen by Provider: 01/21/19 19:37 Hx Obtained From: Patient Hx Last Menstrual Period: 1 day ago ?: No Onset/Duration: Gradual Onset Severity Initially: Mild Severity Currently: Mild Pain Intensity: 3 Aggravating Factors: Nothing Alleviating Factors: Nothing Associated Signs/Symptoms: Positive: URI Symptoms - Allergies/Home Medications Allergies/Adverse Reactions: Allergies Allergy/AdvReac Type Severity Reaction Status Date / Time bee venom protein (honey bee) Allergy Anxiety Verified 01/21/19 19:23 garlic Allergy Swelling Verified 01/21/19 19:23 ondansetron [From Zofran] Allergy Difficulty Verified 01/21/19 19:23 Breathing pollen extracts Allergy Sneezing Verified 01/21/19 19:23 PMH/Surg Hx/FS Hx/Imm Hx Previously Healthy: Yes Other History Of: Negative For: Anticoagulant Therapy - Surgical History Surgical History: Yes Surgery Procedure, Year, and Place: 4 C-SEC (2009/2010/2014) [facility]. 2 [facility] (2008). 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 Smoking Status (MU): Light Every Day Tobacco Smoker Type: Cigarettes Amount Used/How Often: 1 cig/day Length of Time of Smoking/Using Tobacco: 11 years Have You Smoked in the Last Year: Yes Household Exposure Type: Cigarettes - Immunization History Most Recent Influenza Vaccination: Never Most Recent Tetanus Shot: 2016 Most Recent Pneumonia Vaccination: none Review of Systems All Other Systems Reviewed And Are Negative: Yes ENT: Positive: Sore Throat - Sore throat over the past 2 days., Ear Ache - Bilateral earache., Nasal Discharge - Patient states she is blowing out green nasal coryza., Sinus Congestion, Sinus Pain/Tenderness Respiratory: Positive: Cough - Nonproductive cough. Neurological: Positive: Headache - Patient states she has a sinus headache. Is Patient Immunocompromised?: No Physical Exam Triage Information Reviewed: Yes Appearance: Well-Appearing, No Pain Distress, Well-Nourished Vital Signs: Initial Vital Signs Temp 98.4 F 01/21/19 19:18 Pulse 87 01/21/19 19:18 Resp 17 01/21/19 19:18 BP 115/72 01/21/19 19:18 Pulse Ox 100 01/21/19 19:18 Vital Signs Reviewed: Yes Eyes: Positive: Conjunctiva Clear ENT: Positive: Hearing grossly normal, Pharynx normal, Nasal congestion, Nasal drainage - Small amount of yellow nasal coryza., TM red - Left tympanic membrane is mildly erythematous and moderate landmarks. Right tympanic membrane is normal pearly-thurman., Sinus tenderness - Tender over the maxillary sinuses bilaterally., Uvula midline Neck: Positive: Supple, Nontender, No Lymphadenopathy Respiratory: Positive: Lungs clear, Normal breath sounds, No respiratory distress, No accessory muscle use Cardiovascular: Positive: RRR, No Murmur, Pulses Normal, Brisk Capillary Refill Musculoskeletal Exam: Normal Neurological Exam: Normal Psychological Exam: Normal Skin Exam: Normal Ear Complaint Course/Dx - Course Course Of Treatment: Patient is comfortable here. I gave her an injection of Toradol 30 mg IM and 1 dose of amoxicillin 500 mg by mouth here to continue amoxicillin 875 mg by mouth twice a day 10 days. She is to increase fluids and rest. She is to follow-up with [facility] if she has no improvement in 4 or 5 days. - Differential Dx/Diagnosis Provider Diagnosis: Sinusitis, Earache Discharge ED - Sign-Out/Discharge Documenting (check all that apply): Patient Departure All imaging exams completed and their final reports reviewed: No Studies - Discharge Plan Condition: Fair Disposition: HOME Prescriptions: Amoxicillin PO (*) [Amoxicillin 875 MG (*)] 875 mg PO BID 10 Days #19 tab Patient Education Materials: Sinusitis (ED) Referrals: [facility] [Outside] No Primary Care Phys,NOPCP [Primary Care Provider] - Additional Instructions: Increase fluids, rest, follow-up with the [facility] if no improvement in 3 or 4 days. - Billing Disposition and Condition Condition: FAIR Disposition: Home - Attestation Statements Provider Attestation: This patient was not seen by me. Chart reviewed. I was available for consult. PRANEETH
[2019-01-21] MEDS ORDERED: Ketorolac INJ* 30 MG/ML 1 ML VIAL IM ONE (19:51)
[2019-01-21] MEDS ORDERED: Amoxicillin PO (*) 500 MG CAP PO ONE (19:52)
== END 2019-01-21 20:09 | disposition home or self-care (01) ==
LOC: UCEAST 19:07
DX: H92.03 Otalgia, bilateral (principal); J32.9 Chronic sinusitis, unspecified; J02.9 Acute pharyngitis, unspecified; F17.210 Nicotine dependence, cigarettes, uncomplicated; Z91.030 Bee allergy status; Z88.8 Allergy status to other drugs, medicaments and biological substances; Z91.09 Other allergy status, other than to drugs and biological substances
CPT/HCPCS: 96372; 99212; A9270-GY; G0463; J1885

== ENCOUNTER 2019-04-07 10:09 | Emergency (ER) | payer SELFPAY ==
[2019-04-07 10:37] VITALS: BP 124/63
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
[2019-04-07 16:37] LABS: Hematocrit 38 % (35-47); Hemoglobin 12.2 g/dL (12.0-16.0); Mean Corpuscular HGB Conc 33 g/dL (31-36); Mean Corpuscular Hemoglobin 24 pg (27-31); Mean Corpuscular Volume 73 fL (80-97); Mean Platelet Volume 8.4 fL (7.4-10.4); Platelet Count 327 10^3/uL (150-450); Red Blood Count 5.15 10^6 /uL (3.70-4.87); Red Cell Distribution Width 18 % (10-15); White Blood Count 8.5 10^3/uL (3.5-10.8)
[2019-04-07 16:42] LABS: Albumin 4.4 g/dL (3.2-5.2); Calcium 9.5 mg/dL (8.6-10.3); Potassium 4.4 mmol/L (3.5-5.0); Total Bilirubin 0.4 mg/dL (0.2-1.0)
[2019-04-07 16:48] LABS: Albumin/Globulin Ratio 1.7 (1-3); EGFR African American 105.8 (>60); EGFR Non-African American 87.4 (>60); Globulin 2.6 g/dL (2-4)
[2019-04-07 16:58] LABS: ABS Basophils 0.1 10^3/ul (0-0.2); ABS Eosinophils 0.2 10^3/ul (0-0.6); ABS Lymphocytes 2.2 10^3/ul (1.0-4.8); ABS Monocytes 0.6 10^3/ul (0-0.8); ABS Neutrophils 5.5 10^3/ul (1.5-7.7); Eosinophil % 1.9 %; Lymphocyte % 25.6 %
[2019-04-07 17:02] LABS: TSH (Thyroid Stimulating Horm) 2.29 mcIU/mL (0.34-5.60)
== END 2019-04-07 13:12 | disposition home or self-care (01) ==
LOC: UCEAST 10:09
DX: M54.12 Radiculopathy, cervical region (principal); J02.9 Acute pharyngitis, unspecified; H92.09 Otalgia, unspecified ear; Z88.0 Allergy status to penicillin; Z91.030 Bee allergy status; Z91.018 Allergy to other foods; Z88.8 Allergy status to other drugs, medicaments and biological substances; Z91.09 Other allergy status, other than to drugs and biological substances; F17.210 Nicotine dependence, cigarettes, uncomplicated
CPT/HCPCS: 36415; 72050; 80053; 82607; 84443; 85025; 87651; 99212; G0463

== ENCOUNTER 2019-05-20 11:32 | Emergency (ER) | payer OTHER ==
--- OUTSIDE RECORDS SUMMARY | 2019-05-20 11:38 | XMS REPORT | Summary of Care ---
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 [address] [phone] Reason for Visit Reason Comments Check Up pap, hep A, breast exam Encounter Details Date Type Department Care Team Description 04/30/2019 Office Visit [facility] Gabriela Lance 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 documented as of this encounter (statuses as of 04/30/2019) Medications Medication Sig Dispensed Refills Start Date End Date Status Doxepin HCl, Take 50 mg by 0 Active Antipruritic, (DOXEPIN mouth EVERY HCL EX) BEDTIME. albuterol Take 2 Puffs by 0 Active (PROVENTIL,VENTOLIN) 90 inhalation FOUR mcg/act TIMES DAILY. fluticasone-salmeterol Take 1 INHL by 60 Each 0 07/01/2018 Active diskus (ADVAIR) 500-50 inhalation TWICE MCG/DOSE Inhalation DAILY. AEROSOL POWDER, BREATH ACTIVATEDIndications: Asthma, unspecified asthma severity, unspecified whether complicated, unspecified whether persistent hydrOXYzine HCL Take 20 mg by 0 Active (ATARAX) 10 MG Oral Tab mouth DAILY. Fluoxetine HCl 40 MG Take 2 Caps by 0 Active Oral Cap mouth DAILY. tizanidine (ZANAFLEX) 4 Take 1 Tab by 90 Tab 0 02/03/2019 Active MG Oral TabIndications: mouth TWICE Neck pain DAILY. Sofosbuvir-Velpatasvir Take 1 Tab by 28 Tab 2 03/11/2019 Active 400-100 MG Oral Tab mouth DAILY. Omeprazole delayed rel Take 20 mg by 30 Cap 2 03/19/2019 Active cap 20 MG Oral CAPSULE mouth DAILY. Take DELAYED RELEASE this 4 hours AFTER your Velpatasvir/Sofos buvir. cyclobenzaprine Take 1 Tab by 30 Tab 0 03/30/2019 Active (FLEXERIL) 10 MG Oral mouth THREE TIMES TabIndications: Back DAILY NEEDED pain, unspecified back (pain). location, unspecified back pain laterality, unspecified chronicity, Neck pain etodolac (LODINE) 400 Take 400 mg by 60 Tab 0 03/30/2019 Active MG Oral TabIndications: mouth EVERY EIGHT Back pain, unspecified HOURS NEEDED back location, (pain). unspecified back pain laterality, unspecified chronicity, Neck pain methocarbamol (ROBAXIN) Take 1 Tab by 120 Tab 0 04/23/2019 Active 500 MG Oral mouth FOUR TIMES TabIndications: Chronic DAILY. neck pain gabapentin (NEURONTIN) Take 300 mg by 0 Active 300 MG Oral Cap mouth THREE TIMES DAILY. doxycycline Take 100 mg by 14 Tab 0 04/23/2019 Active (VIBRAMYCIN) 100 MG mouth TWICE Oral TabIndications: DAILY. Acute bacterial rhinosinusitis documented as of this encounter (statuses as of 04/30/2019) Active Problems Problem Noted Date Chronic neck pain 04/24/2019 Chronic hepatitis C without hepatic coma 02/16/2019 Traumatic pneumothorax 12/14/2016 Closed fracture of multiple ribs of left side 12/14/2016 UTI (urinary tract infection) 12/14/2016 Abdominal pain, unspecified site 04/17/2006 Asthma documented as of this encounter (statuses as of 04/30/2019) Immunizations Name Administration Dates Next Due Hepatitis A Vaccine-Adult 04/30/2019 Influenza Virus Vaccine Pres Free 6-35 Months 12/16/2016 MENINGOCOCCAL CONJUGATE VACCINE 04/30/2019 documented as of this encounter Social History Tobacco Use Types Packs/Day Years Used Date Current Every Day Smoker Cigarettes 0.25 Smokeless Tobacco: Former User Alcohol Use Drinks/Week oz/Week Comments No Social Isolation Answer Date Recorded In a typical week, how many times do you talk on Twice a week 04/23/2019 the phone with family, friends, or neighbors? How often do you get together with friends or Once a week 04/23/2019 relatives? How often do you attend protestant or mandaeism Never 04/23/2019 services? Do you belong to any clubs or organizations such as No 04/23/2019 protestant groups, unions, fraPaxfire or athletic groups, or school groups? How often do you attend meetings of the clubs or Never 04/23/2019 organizations you belong to? Are you now , , , , Living with partner 2019 never or living with a partner? Physical Activity Answer Date Recorded On average, how many days per week do you engage in moderate to 0 days 2019 strenuous exercise (like walking fast, running, jogging, dancing, swimming, biking, or other activities that cause a light or heavy sweat)? On average, how many minutes do you engage in exercise at this 0 min 2019 level? Stress Answer Date Recorded Do you feel stress - tense, restless, nervous, or anxious, Not at all 2019 or unable to sleep at night because your mind is troubled all the time - these days? Intimate Partner Violence Answer Date Recorded Within the last year, have you been afraid of your partner or No 04/23/2019 ex-partner? Within the last year, have you been humiliated or emotionally No 04/23/2019 abused in other ways by your partner or ex-partner? Within the last year, have you been kicked, hit, slapped, or No 04/23/2019 otherwise physically hurt by your partner or ex-partner? Within the last year, have you been raped or forced to have any No 04/23/2019 kind of sexual activity by your partner or ex-partner? Food Insecurity Answer Date Recorded Within the past 12 months, you worried that your food would Never true 2019 run out before you got money to buy more. Within the past 12 months, the food you bought just didn't Never true 2019 last and you didn't have money to get more. Transportation Needs Answer Date Recorded In the past 12 months, has lack of transportation kept you from No 04/23/2019 medical appointments or from getting medications? In the past 12 months, has lack of transportation kept you from No 04/23/2019 meetings, work, or getting things needed for daily living? Sex Assigned at Date Recorded Not on file Job Start Date Occupation Industry Not on file Not on file Not on file Travel History Travel Start Travel End No recent travel history available. documented as of this encounter Last Filed Vital Signs Vital Sign Reading Time Taken Comments Blood Pressure 136/64 04/30/2019 11:29 AM EST Pulse 108 04/30/2019 11:29 AM EST Temperature 37.4 04/30/2019 11:29 AM EST C (99.4 F) Respiratory Rate - - Oxygen Saturation 99% 04/30/2019 11:29 AM EST Inhaled Oxygen Concentration - - Weight 95.7 kg (211 lb) 04/30/2019 11:29 AM EST Height 157.5 cm (5' 2") 04/30/2019 11:29 AM EST Body Mass Index 38.59 04/30/2019 11:29 AM EST documented in this encounter Patient Instructions Patient InstructionsGabriela Lance NP - 04/30/2019 11:20 AM EST Schedule mammogram and breast ultrasound - for the breast pain. Have the paperwork sent to us from [facility] so I can fill out. You may feel under the weather after receiving the meningitis and hepatitis A vaccine(s), and your arm may be sore - you can take tylenol and ibuprofen over the counter for this. This is an expected immune response to the vaccine. DIET AND EXERCISE: Exercise is recommended 150 minutes weekly: 30 minutes five days a week of moderate exercise such as walking. In addition is it recommended you have two days weekly of working all your major muscle groups (arms, legs) such as with weight lifting or other exercise. I recommend a well balanced healthy diet, portion control, drink plenty of fluids. The Mediterranean diet is an excellent diet. Be sure to get adequate sleep at night, 8 hours. documented in this encounter Progress Notes Gabriela Lance NP - 04/30/2019 11:20 AM EST PATIENT: Antonia Arriaga : 1985 DATE OF SERVICE: 04/30/2019 CHIEF COMPLAINT: Chief Complaint Patient presents with Check Up pap, hep A, breast exam Subjective HISTORY OF PRESENT ILLNESS: Antonia Arriaga is a 33-y.o. female. HPI CPE done last week. Here for pap smear which she wanted to schedule at a different time. URI continues - taking doxycycline for this. Forgot paperwork for school - will get this to us later to fill out. Still needs meningitis vaccine, and would also like Hep A vaccine. Bilat breast pain, not related to her cycle, all the time - very tender. She is concerned because she does not know her family history and would like to be checked for breast cancer. Past Medical History: Diagnosis Date Asthma Chronic neck pain Hepatitis C Multilevel degenerative disc disease Pneumothorax Rib fracture Family History Problem Relation Age of Onset Diabetes Mother Kidney Disease Mother Heart Mother Dementia Father Liver Disease Father No Known Problems Sister No Known Problems Brother No Known Problems Daughter No Known Problems Son No Known Problems Brother No Known Problems Brother No Known Problems Brother No Known Problems Son No Known Problems Daughter Current Outpatient Medications Medication Sig albuterol (PROVENTIL,VENTOLIN) 90 mcg/act Take 2 Puffs by inhalation FOUR TIMES DAILY. cyclobenzaprine (FLEXERIL) 10 MG Oral Tab Take 1 Tab by mouth THREE TIMES DAILY NEEDED (pain). Doxepin HCl, Antipruritic, (DOXEPIN HCL EX) Take 50 mg by mouth EVERY BEDTIME. doxycycline (VIBRAMYCIN) 100 MG Oral Tab Take 100 mg by mouth TWICE DAILY. etodolac (LODINE) 400 MG Oral Tab Take 400 mg by mouth EVERY EIGHT HOURS NEEDED (pain). Fluoxetine HCl 40 MG Oral Cap Take 2 Caps by mouth DAILY. fluticasone-salmeterol diskus (ADVAIR) 500-50 MCG/DOSE Inhalation AEROSOL POWDER, BREATH ACTIVATED Take 1 INHL by inhalation TWICE DAILY. gabapentin (NEURONTIN) 300 MG Oral Cap Take 300 mg by mouth THREE TIMES DAILY. hydrOXYzine HCL (ATARAX) 10 MG Oral Tab Take 20 mg by mouth DAILY. methocarbamol (ROBAXIN) 500 MG Oral Tab Take 1 Tab by mouth FOUR TIMES DAILY. Omeprazole delayed rel cap 20 MG Oral CAPSULE DELAYED RELEASE Take 20 mg by mouth DAILY. Takethis 4 hours AFTER your Velpatasvir/Sofosbuvir. Sofosbuvir-Velpatasvir 400-100 MG Oral Tab Take 1 Tab by mouth DAILY. tizanidine (ZANAFLEX) 4 MG Oral Tab Take 1 Tab by mouth TWICE DAILY. No current facility-administered medications for this visit. Allergies Allergen Reactions Amoxicillin Dermatologic Reaction Hives Bee Sting Swelling Zofran [Ondansetron] Respiratory Reaction Pt states her throat swelled when given IVP. Social History Socioeconomic History Marital status: Single Spouse name: Not on file Number of children: Not on file Years of education: Not on file Highest education level: Not on file Occupational History Not on file Social Needs Financial resource strain: Not on file Food insecurity Worry: Never true Inability: Never true Transportation needs Medical: No Non-medical: No Tobacco Use Smoking status: Current Every Day Smoker Packs/day: 0.25 Types: Cigarettes Smokeless tobacco: Former User Substance and Sexual Activity Alcohol use: No Drug use: Not Currently Types: Marijuana Comment: in past: meth, cocaine. did IV - Dec 2017 stopped. Sexual activity: Yes Partners: Male control/protection: Surgical Lifestyle Physical activity Days per week: 0 days Minutes per session: 0 min Stress: Not at all Relationships Social connections Talks on phone: Twice a week Gets together: Once a week Attends mandaeism service: Never Active member of club or organization: No Attends meetings of clubs or organizations: Never Relationship status: Living with partner Intimate partner violence Fear of current or ex partner: No Emotionally abused: No Physically abused: No Forced sexual activity: No Other Topics Concern Back Care Not Asked Bike Helmet Not Asked Blood Transfusions Not Asked Caffeine Concern Not Asked Exercise Not Asked Hobby Hazards Not Asked International Travel Not Asked Service Not Asked Occupational Exposure Not Asked Seat Belt Not Asked Self-Exams Not Asked Sleep Concern Not Asked Special Diet Not Asked Stress Concern Not Asked Weight Concern Not Asked Social History Narrative Lives with significant other and step child. Not working. 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 4 children REVIEW OF SYSTEMS: Review of Systems HENT: Positive for congestion. Eyes: Positive for discharge (clear). Gastrointestinal: Negative for abdominal pain. Genitourinary: Negative for dysuria, frequency, hematuria and urgency. Musculoskeletal: Positive for back pain (chronic) and myalgias (bilat breast pain). Objective PHYSICAL EXAM: VITALS: BP 136/64 (BP Location: Left arm, Patient Position: Sitting) | Pulse 108 | Temp 99.4 F (37.4 C) (Tympanic) | Ht 5' 2" (1.575 m) | Wt 211 lb (95.7 kg) | SpO2 99% | BMI 38.59 kg/m Body mass index is 38.59 kg/m . Physical Exam Vitals signs reviewed. Constitutional: General: She is not in acute distress. Appearance: Normal appearance. She is not ill-appearing. Chest: Breasts: Right: Tenderness present. No swelling, bleeding, inverted nipple, mass, nipple discharge or skin change. Left: Tenderness present. No swelling, bleeding, inverted nipple, mass, nipple discharge or skin change. Genitourinary: Vagina: No signs of injury and foreign body. Vaginal discharge (thick white) present. No erythema, tenderness, bleeding, lesions or prolapsed vaginal diallo. Cervix: No cervical motion tenderness, discharge, friability, lesion, erythema, cervical bleedingor eversion. Uterus: Normal. Adnexa: Right: No mass, tenderness or fullness. Left: No mass, tenderness or fullness. Lymphadenopathy: Upper Body: Right upper body: No supraclavicular or axillary adenopathy. Left upper body: No supraclavicular or axillary adenopathy. Skin: General: Skin is warm and dry. Neurological: Mental Status: She is alert. Psychiatric: Mood and Affect: Mood normal. Behavior: Behavior normal. Thought Content: Thought content normal. Judgment: Judgment normal. ASSESSMENT / IMPRESSION: ICD-9-CM ICD-10-CM 1. 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 Need for vaccination V05.9 Z23 UT MENINGOCOCCAL CONJ VAC(DX CODE Z23) ADMINISTRATION VACCINE SINGLE ADMINISTRATION VACCINE EACH ADDITIONAL X__UNITS UT HEPATITIS A VACCINE - ADULT(Z23) 3. Mastalgia 611.71 N64.4 MAMMO DIAG TOMOSYNTHESIS BILAT US BREAST COMPLETE BILAT Plan 1. Need for vaccination - UT MENINGOCOCCAL CONJ VAC(DX CODE Z23) - ADMINISTRATION VACCINE SINGLE - ADMINISTRATION VACCINE EACH ADDITIONAL X__UNITS - UT HEPATITIS A VACCINE - ADULT(Z23) 2. 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 - PAP SMEAR THINPREP AND HPV - PAM / FREDERICK / TRIC DNA PROBE; Future 3. Mastalgia -Explained most likely benign, clinical breast exam normal - will do mammo and u /s for reassurance as she does not know her family history. - MAMMO DIAG TOMOSYNTHESIS BILAT; Future - US BREAST COMPLETE BILAT; Future Author: Gabriela Lanec NP 04/30/2019 12:04 documented in this encounter Plan of Treatment Name Type Priority Associated Diagnoses Date/Time PAP SMEAR THINPREP AND Lab Routine Encntr for explosive ordnance technician exam 04/30/2019 11:52 AM EST HPV (general) (routine) w/o abn findings Name Type Priority Associated Diagnoses Order Schedule ADMINISTRATION VACCINE Procedures Routine Need for vaccination Ordered: SINGLE ADMINISTRATION VACCINE Procedures Routine Need for vaccination Ordered: EACH ADDITIONAL X__UNITS PAM / FREDERICK / TRIC Lab Routine Encntr for explosive ordnance technician exam 1 Occurrences DNA PROBE (general) (routine) starting 04/30/2019 w/o abn findings until 10/27/2019 MAMMO DIAG TOMOSYNTHESIS Imaging Routine Mastalgia Expected: BILAT 04/30/2019, Expires: 07/28/2020 US BREAST COMPLETE BILAT Imaging Routine Mastalgia Expected: 04/30/2019, Expires: 07/28/2020 Health Maintenance Due Date Last Done Comments HEPATITIS A IMMUNIZATION SERIES (1 11/27/1988 of 2 - Risk 2-dose series) PNEUMOCOCCAL 0-64 YRS (1 of 1 - 11/27/1993 PPSV23) DTaP/Tdap/Td Vaccines (1 - Tdap) 11/27/1998 PAP SMEAR 11/27/2008 INFLUENZA VACCINE (#1) 2018 DEPRESSION SCREENING 02/04/2020 02/03/2019 HIV SCREENING Completed 07/01/2018 HPV IMMUNIZATION SERIES Aged Out No longer eligible based on patient's age to complete this topic MENINGOCOCCAL VACCINE IMM Aged Out No longer eligible based on patient's age to complete this topic documented as of this encounter Results Not on filedocumented in this encounter Visit Diagnoses Diagnosis Need for vaccination Need for prophylactic vaccination and inoculation against unspecified single disease 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
--- OUTSIDE RECORDS SUMMARY | 2019-05-20 11:38 | XMS REPORT | Summary of Care ---
:[address] [facility] Address [address] [facility] [place] [address] Care Team Providers Name Role Phone RodriAmy sylvesterGabriela Primary Care Provider Reason for Referral Refer to Department Only (Routine) Status Reason Specialty Diagnoses / Referred By Referred To Procedures Contact Contact Pending Review Physical Therapy Diagnoses Back pain, unspecified back location, unspecified back pain laterality, unspecified chronicity Neck pain Bing Hernandez FNP [address] [place] [address] Reason for Visit Reason Comments Back Pain pain near spine, numbness and tingling, pain in right leg, x3 days Encounter Details Date Type Department Care Team Description 03/30/2019 Office Visit Geovanna Rios Bing Hernandez, Back pain, unspecified back location, unspecified back pain laterality, unspecified chronicity (Primary Dx); Practice [employer] Neck pain [address] [facility] [address] [place] [address] [phone] Allergies Active Allergy Reactions Severity Noted Date Comments Amoxicillin Dermatologic Reaction 02/03/2019 Hives Bee Sting Swelling 12/14/2016 Ondansetron Respiratory Reaction 12/14/2016 Pt states her throat swelled when given IVP. documented as of this encounter (statuses as of 03/30/2019) Medications Medication Sig Dispensed Refills Start Date [...] Oral TabIndications: mouth TWICE Neck pain DAILY. methocarbamol (ROBAXIN) Take 500 mg by 0 Active 500 MG Oral Tab mouth FOUR TIMES DAILY. Sofosbuvir-Velpatasvir Take 1 Tab by 28 [...] back pain laterality, unspecified chronicity, Neck pain documented as of this encounter (statuses as of 03/30/2019) Active Problems Problem Noted Date Chronic hepatitis C without hepatic coma 02/16/2019 Traumatic pneumothorax 12/14/2016 Closed fracture of multiple ribs of left side 12/14/2016 UTI (urinary tract infection) 12/14/2016 Abdominal pain, unspecified site 04/17/2006 Asthma documented as of this encounter (statuses as of 03/30/2019) Immunizations Name Administration Dates Next Due Influenza Virus Vaccine Pres Free 6-35 Months 12/16/2016 documented as of this encounter Social History Tobacco Use Types Packs/Day Years Used Date Current Every Day Smoker Cigarettes 0.25 Smokeless Tobacco: Former User Tobacco Cessation: Ready to Quit: No; Counseling Given: Yes Alcohol Use Drinks/Week oz/Week Comments No Sex Assigned at Date Recorded Not on file Job Start Date Occupation Industry Not on file Not on file Not on file Travel History Travel Start Travel End No recent travel history available. documented as of this encounter Last Filed Vital Signs Vital Sign Reading Time Taken Comments Blood Pressure 130/70 03/30/2019 10:22 AM EST Pulse 94 03/30/2019 10:22 AM EST Temperature - - Respiratory Rate - - Oxygen Saturation 97% 03/30/2019 10:22 AM EST Inhaled Oxygen Concentration - - Weight 91.2 kg (201 lb) 03/30/2019 10:22 AM EST Height - - Body Mass Index 36.76 03/02/2019 11:43 AM EST documented in this encounter Patient Instructions Patient InstructionsBing Hernandez FNP - 03/30/2019 10:20 AM ESTHeat to painful areas Medication as directed Schedule with PT when pain improves Follow up with Ms Lance in 2-3 weeks documented in this encounter Progress Notes Bing Hernandez FNP - 03/30/2019 10:20 AM EST PATIENT: Antonia Arriaga : 1985 DATE OF SERVICE: 03/30/2019 CHIEF COMPLAINT: Chief Complaint Patient presents with Back Pain pain near spine, numbness and tingling, pain in right leg, x3 days Subjective HISTORY OF PRESENT ILLNESS: Antonia Arriaga is a 33-y.o. female. HPI Pain in neck and back x 3 days - has muscle relaxer - Zanaflex - no helping. Used Ibuprofen 200 mg last night and heat. No bowel or bladder change or incontinence Past Medical History: Diagnosis Date Asthma Pneumothorax Rib fracture No family history on file. Current Outpatient Medications Medication Sig albuterol (PROVENTIL,VENTOLIN) 90 mcg/act Take 2 Puffs by inhalation FOUR TIMES DAILY. cyclobenzaprine (FLEXERIL) 10 MG Oral Tab Take 1 Tab by mouth THREE TIMES DAILY NEEDED (pain). Doxepin HCl, Antipruritic, (DOXEPIN HCL EX) Take 50 mg by mouth EVERY BEDTIME. etodolac (LODINE) 400 MG Oral Tab Take [...] methocarbamol (ROBAXIN) 500 MG Oral Tab Take 500 mg by mouth FOUR TIMES DAILY. Omeprazole delayed [...] strain: Not on file Food insecurity Worry: Not on file Inability: Not on file Transportation needs Medical: Not on file Non-medical: Not on file Tobacco Use Smoking status: Current Every Day Smoker Packs/day: 0.25 Types: Cigarettes Smokeless tobacco: Former User Substance and Sexual Activity Alcohol use: No Drug use: Yes Types: Marijuana Comment: in past: meth, cocaine. did IV Sexual activity: Yes Partners: Male control/protection: Surgical Lifestyle Physical activity Days per week: Not on file Minutes per session: Not on file Stress: Not on file Relationships Social connections Talks on phone: Not on file Gets together: Not on file Attends adventism service: Not on file Active member of club or organization: Not on file Attends meetings of clubs or organizations: Not on file Relationship status: Not on file Intimate partner violence Fear of current or ex partner: Not [...] REVIEW OF SYSTEMS: Review of Systems Constitutional: Positive for malaise/fatigue. Negative for chills and fever. Musculoskeletal: Positive for back pain, myalgias and neck pain. Neurological: Positive for headaches. Objective PHYSICAL EXAM: VITALS: BP 130/70 | Pulse 94 | Wt 201 lb (91.2 kg) | SpO2 97% | BMI 36.76 kg/m Body mass index is 36.76 kg/m. Physical Exam Vitals signs and nursing note reviewed. Constitutional: General: She is not in acute distress. Appearance: She is obese. HENT: Head: Normocephalic and atraumatic. Musculoskeletal: Cervical back: She exhibits tenderness and spasm. Thoracic back: She exhibits tenderness and spasm. Lumbar back: She exhibits tenderness and spasm. Skin: General: Skin is warm and dry. Capillary Refill: Capillary refill takes less than 2 seconds. Findings: No bruising, erythema, lesion or rash. Neurological: Mental Status: She is alert and oriented to person, place, and time. Cranial Nerves: Cranial nerves are intact. Gait: Gait is intact. Psychiatric: Mood and Affect: Mood normal. Behavior: Behavior is cooperative. ASSESSMENT / IMPRESSION: ICD-9-CM ICD-10-CM 1. Back pain, unspecified back location, unspecified back pain laterality, unspecified chronicity 724.5 M54.9 cyclobenzaprine (FLEXERIL) 10 MG Oral Tab etodolac (LODINE) 400 MG Oral Tab REFER TO PHYSICAL THERAPY / REHAB 2. Neck pain 723.1 M54.2 cyclobenzaprine (FLEXERIL) 10 MG Oral Tab etodolac (LODINE) 400 MG Oral Tab REFER TO PHYSICAL THERAPY / REHAB Plan Heat to painful areas Medication as directed Schedule with PT when pain improves Follow up with Casi in 2-3 weeks Author: RAÚL Knox 03/30/2019 10:42 documented in this encounter Plan of Treatment Date Type Specialty Care Team Description 04/01/2019 Lab Internal Medicine 04/19/2019 Office Visit Neurology Stuart Durant CRNP [address] [place] [address] [phone] 04/20/2019 Office Visit Family Practice Gabriela Lance NP [address] [place] [address] [phone] 04/22/2019 Office Visit Gastroenterology Tootie Gamez NP [address] [place] [address] [phone] Name Type Priority Associated Diagnoses Order Schedule REFER TO PHYSICAL Referral Routine Back pain, unspecified 99 Occurrences starting THERAPY / REHAB back location, 03/30/2019 until unspecified back pain 03/30/2020 laterality, unspecified chronicity Neck pain Health Maintenance Due Date Last Done Comments [...] filedocumented in this encounter Visit Diagnoses Diagnosis Back pain, unspecified back location, unspecified back pain laterality, unspecified chronicity Neck pain Cervicalgia documented in this encounter documented as of this encounter"
--- OUTSIDE RECORDS SUMMARY | 2019-05-20 11:38 | XMS REPORT ---
:1985 Author Organization [facility] Care Team Providers Name Role Phone JAMES CHAPMAN Primary Care Physician Unavailable Allergies, Adverse Reactions, Alerts Allergy Code CodeSystem Reaction Severity Criticality Status Start Substance Date Moderate Medications Medication Medication Medication Start Stop Route Dose Status Fill Code CodeSystem Date Date Instructions meloxicam 952042 RxNorm 2019- oral 7.5 mg active for 30 2-26 tablet day(s) hydroxyzine 428328 RxNorm 2019- oral 25 mg 1 active Take 1 tablet HCl 07-06 tablet twice a day twice a as needed for day 30 day(s) fluoxetine 271512 RxNorm 2019- oral 20 mg 1 active Take 1 07-06 capsule capsule every every morning morning for 30 day(s) fluoxetine 587672 RxNorm 2019- oral 40 mg completed for 30 - 04-08 capsule day(s) albuterol 229988 RxNorm inhl 90 active for 17 sulfate 1-15 mcg/actu day(s) ation HFA aerosol inhaler fluoxetine 290837 RxNorm 2019-0 oral 40 mg active for 30 1-14 capsule day(s) doxepin 1637676 RxNorm 2019- oral 50 mg active for 30 -14 07-07 capsule day(s) propranolol 061705 RxNorm 2019 oral 10 mg active for 30 2-26 tablet day(s) Ventolin HFA 238219 RxNorm inhl 90 active for 17 1-15 mcg/actu day(s) ation HFA aerosol inhaler Problems Problem Name Code CodeSystem Alternate Alternate Start End Status Narrative Code CodeSystem Date Date Tobacco use 67547575 SNOMED-CT 2018-0 Active 3-27 Adjustment 50610794 SNOMED-CT 0 Active disorders, 3-27 with disturbance of conduct Post-traumat 89066268 SNOMED-CT Active ic stress 3- disorder, unspecified 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, unspecified Habit and 35919705 SNOMED-CT Active impulse -27 disorder, unspecified Adjustment 98889665 SNOMED-CT Active disorders, 06-24 with disturbance of conduct Tobacco use 62191509 SNOMED-CT Active 06-24 Relevant diagnostic tests/laboratory data Narrative No Information Procedures Procedure Code CodeSystem Target Date of Status Service Device Device Device Name Site Procedure Delivery Code Name UID Location Psychotherap [id number] SNOMED-CT () 2019-03-03 complete Mental y, 45 04 d Health- minutes with [address], [id number] [id number] Psychotherap [id number] SNOMED-CT () 2019-03-22 complete Mental y, 45 04 d Health- minutes with [address], [id number] [id number] Psychotherap [id number] SNOMED-CT () 2019-04-05 complete Mental y, 45 04 d Health- minutes with [address], [id number] [id number] Psychotherap 344141 SNOMED-CT () 2018-09-18 complete Mental y, 45 04 d Health- minutes with [address], [id number] [id number] Psychotherap [id number] SNOMED-CT () 2018-09-07 complete Mental y, 45 04 d Health- minutes with [address], [id number] [phone] Psychotherap [id number] SNOMED-CT () 2018-06-29 complete Mental y, 45 04 d Health- minutes with [address], [id number] [phone] Psychotherap 897143 SNOMED-CT () 2018-07-03 complete Mental y, 45 04 d Health- minutes with [address], [id number] [phone] Psychotherap [id number] SNOMED-CT () 2018-08-13 complete Mental y, 45 04 d Health- minutes with [place] patient [address], [id number] [phone] Office [place] [id number] SNOMED-CT () 2018-07-06 complete Mental other 7 d Health- outpatient [place] visit for [address], [facility], of an [place], established [id number] patient, [phone] which requires at least 2 of these 3 alcazar components: An expanded problem focused history; An expanded problem focused examination; Medical decision making of low Office or [id number] SNOMED-CT () 2018-09-07 complete Mental other 7 d Health- outpatient [place] visit for [address], of [facility], established [id number] patient, [phone] which requires at least 2 of these 3 alcazar components: An expanded problem focused history; An expanded problem focused examination; Medical decision making of low SNOMED-CT () 2018-08-20 complete Mental d Health- [address], [id number] [phone] SNOMED-CT () 2018-09-10 complete Mental d Health- [address], [id number] [phone] SNOMED-CT () 2018-09-30 complete Mental d Health- [address], [id number] [id number] SNOMED-CT () 2019-04-12 complete Mental d Health[address], [id number] [phone] SNOMED-CT () 2019-02-16 complete Public d [facility], [address] [phone] SNOMED-CT () 2019-02-18 complete Public d [facility], [address] [phone] SNOMED-CT () 2019-04-16 complete Public d [facility], [address] [phone] SNOMED-CT () 2019-03-29 complete Public d Health[address], [address] [phone] SNOMED-CT () 2019-03-[address], [address] [phone] SNOMED-CT () 2019-03-[address], [address] [phone] Encounters/Encounter Diagnoses Encounter Encounter Diagnosis Diagnosis Name Diagnosis Date of Service Name Code Code CodeSystem Diagnosis Delivery Location [place] [id number] Post-traumatic SNOMED-CT 2019-04-16 Behavioral Home Visit stress Health disorder, [place] [address] [place], [address] Vital Signs No Information Social History Element Description Description Start End Code CodeSystem AdditionalInfo Date Date SexAssignedAtBirth Female F AdministrativeGender 11-27 Hospital Discharge Instructions Reason For Referral Medical Equipment FDA Assessments
--- OUTSIDE RECORDS SUMMARY | 2019-05-20 11:38 | XMS REPORT ---
:1985 Author Organization [facility] Care Team Providers Name Role Phone JAMES CHAPMAN Primary Care Physician Unavailable Allergies, Adverse Reactions, Alerts Allergy Code CodeSystem Reaction Severity Criticality Status Start Substance Date Moderate Medications Medication Medication Medication Start Stop Route Dose Status Fill Code CodeSystem Date Date Instructions hydroxyzine 806286 RxNorm 2019- oral 25 mg 1 active Take 1 tablet HCl 07-06- tablet twice a day twice a as needed for day 30 day(s) albuterol 933554 RxNorm inhl 90 active for 17 sulfate 1-15 mcg/actu day(s) ation HFA aerosol inhaler meloxicam 979840 RxNorm 20190 oral 7.5 mg active for 30 2-26 tablet day(s) doxepin 2610544 RxNorm 2019- oral 50 mg active for 30 -11 10-07 capsule day(s) fluoxetine 501344 RxNorm 20190 oral 40 mg active for 30 1-14 capsule day(s) fluoxetine 506973 RxNorm 2019- oral 20 mg 1 active Take 1 07-06- capsule capsule every every morning morning for 30 day(s) fluoxetine 953318 RxNorm 0 2019- oral 40 mg completed for 30 - 04-08 capsule day(s) Ventolin HFA 773429 RxNorm 20190 inhl 90 active for 17 1-15 mcg/actu day(s) ation HFA aerosol inhaler propranolol 210857 RxNorm 2019-0 oral 10 mg active for 30 2-26 tablet day(s) Problems Problem Name Code CodeSystem Alternate Alternate Start End Status Narrative Code CodeSystem Date Date Post-traumat 25022331 SNOMED-CT 2019-0 Active ic stress 3-22 disorder, unspecified Habit and 80880777 SNOMED-CT 2019-0 Active impulse 3-27 disorder, unspecified Tobacco use 03231615 SNOMED-CT Active - Adjustment 22162085 SNOMED-CT Active disorders, 06-24 with disturbance of conduct Habit and 71139087 SNOMED-CT Active impulse 06-24 disorder, unspecified Tobacco use 92763133 SNOMED-CT Active 06-24 Adjustment 57472758 SNOMED-CT Active disorders, 06-24 with disturbance of conduct Relevant diagnostic tests/laboratory data Narrative No Information Procedures Procedure Code CodeSystem Target Date of Status Service Device Device Device Name Site Procedure Delivery Code Name UID Location SNOMED-CT () 2019-03-15 complete Public d [address], [address] [phone] SNOMED-CT () 2019-03-[address], [address] [phone] SNOMED-CT () 2019-03-29 complete Public d [address], [address] [phone] SNOMED-CT () 2018-09-30 complete Mental d [address], [id number] [phone] Psychotherap [id number] SNOMED-CT () 2018-09-18 complete Mental y, 45 04 d Health- minutes with [address], [id number] SNOMED-CT () 2019-04-23 complete Public d [address], [address] [phone] Psychotherap 535937 SNOMED-CT () 2019-04-05 complete Mental y, 45 04 d Health- minutes with [address], [id number] [id number] SNOMED-CT () 2019-04-12 complete Mental d [address], [id number] [phone] SNOMED-CT () 2019-02-18 complete Public d [address], [address] [phone] SNOMED-CT () 2019-04-16 complete Public d Health- [facility], [address] [phone] SNOMED-CT () 2019-02-16 complete Public d Health- [address], [address] [phone] Office or 145891 SNOMED-CT () 2019-04-14 complete Mental other 7 d Health- outpatient [place] visit for [address], [facility], [facility] [id number] patient, [phone] which requires at least 2 of these 3 alcazar components: An expanded problem focused history; An expanded problem focused examination; Medical decision making of low SNOMED-CT () 2018-09-10 complete Mental d Health- [address], [phone] Office or [id number] SNOMED-CT () 2018-07-06 complete Mental other 7 d Health- outpatient [facility] visit for [address], [facility], established [id number] patient, [phone] which requires at least 2 of these 3 alcazar components: An expanded problem focused history; An expanded problem focused examination; Medical decision making of low Psychotherap 405677 SNOMED-CT () 2019-03-22 complete Mental y, 45 04 d Health- minutes with [place] patient [address], [id number] [phone] Psychotherap 097598 SNOMED-CT () 2019-03-03 complete Mental y, 45 04 d Health- minutes with [facility] patient [address], [phone] [phone] SNOMED-CT () 2018-08-20 complete Mental d Health- [place], [id number] [phone] Psychotherap 433275 SNOMED-CT () 2018-09-07 complete Mental y, 45 04 d Health- minutes with [facility] patient [address], [id number] [phone] Office or [id number] SNOMED-CT () 2018-09-07 complete Mental other 7 d Health- outpatient [facility] visit for [address] [facility] [id number] patient, [phone] which requires at least 2 of these 3 alcazar components: An expanded problem focused history; An expanded problem focused examination; Medical decision making of low Psychotherap 479587 SNOMED-CT () 2018-06-29 complete Mental y, 45 04 d Health- minutes with [facility] patient [address], [id number] [phone] Psychotherap [id number] SNOMED-CT () 2018-07-03 complete Mental y, 45 04 d Health- minutes with [facility] patient [address], [phone] Psychotherap [id number] SNOMED-CT () 2018-08-13 complete Mental y, 45 04 d Health- minutes with [address], [id number] [phone] Encounters/Encounter Diagnoses Encounter Encounter Diagnosis Diagnosis Name Diagnosis Date of Service Name Code Code CodeSystem Diagnosis Delivery Location [place] [phone] [phone] Post-traumatic SNOMED-CT 2019-04-23 Behavioral Home Visit stress Health disorder, Clinic [address] unspecified [facility], [place], [address] Vital Signs No Information Social History Element Description Description Start End Code CodeSystem AdditionalInfo Date Date SexAssignedAtBirth Female F AdministrativeGender 11-27 Hospital Discharge Instructions Reason For Referral Medical Equipment FDA Assessments
--- OUTSIDE RECORDS SUMMARY | 2019-05-20 11:38 | XMS REPORT ---
:1985 Author Organization [facility] Care Team Providers Name Role Phone JAMES CHAPMAN Primary Care Physician Unavailable Allergies, Adverse Reactions, Alerts Allergy Code CodeSystem Reaction Severity Criticality Status Start Substance Date Moderate Medications Medication Medication Medication Start Stop Route Dose Status Fill Code CodeSystem Date Date Instructions fluoxetine 036245 RxNorm 2019-0 oral 40 mg active for 30 1-14 capsule day(s) fluoxetine 780029 RxNorm 2019- oral 40 mg completed for 30 1- 04-08 capsule day(s) propranolol 481529 RxNorm oral 10 mg active for 30 2-26 tablet day(s) doxepin 2575203 RxNorm 2019- oral 50 mg active for 30 -11 10-07 capsule day(s) Ventolin HFA 199750 RxNorm inhl 90 active for 17 1-15 mcg/actu day(s) ation HFA aerosol inhaler fluoxetine 214827 RxNorm 2019- oral 20 mg 1 active Take 1 07-06- capsule capsule every every morning morning for 30 day(s) albuterol 122447 RxNorm 2019 inhl 90 active for 17 sulfate 1-15 mcg/actu day(s) ation HFA aerosol inhaler meloxicam 521179 RxNorm oral 7.5 mg active for 30 2-26 tablet day(s) hydroxyzine 648514 RxNorm 2019- oral 25 mg 1 active Take 1 tablet HCl 07-06- tablet twice a day twice a as needed for day 30 day(s) Problems Problem Name Code CodeSystem Alternate Alternate Start End Status Narrative Code CodeSystem Date Date Habit and 30060979 SNOMED-CT 2019-0 Active impulse 3-27 disorder, unspecified Adjustment 08979926 SNOMED-CT 0 Active disorders, 3-27 with disturbance of conduct Tobacco use 10653697 SNOMED-CT 2018- Active 3- Adjustment 59199529 SNOMED-CT Active disorders, 06-24 with disturbance of conduct Tobacco use 06525828 SNOMED-CT Active - Post-traumat 97493654 SNOMED-CT Active ic stress 06-19 disorder, unspecified Habit and 75773249 SNOMED-CT Active impulse 06-24 disorder, unspecified Relevant diagnostic tests/laboratory data Narrative No Information Procedures Procedure Code CodeSystem Target Date of Status Service Device Device Device Name Site Procedure Delivery Code Name UID Location Psychotherap [id number] SNOMED-CT () 2019-03-03 complete Mental y, 45 04 d Health- minutes with [address], [id number] [phone] Psychotherap 406999 SNOMED-CT () 2019-03-22 complete Mental y, 45 04 d Health- minutes with [address], [id number] [phone] Psychotherap [id number] SNOMED-CT () 2018-09-18 complete Mental y, 45 04 d Health- minutes with [address], [phone] Psychotherap [id number] SNOMED-CT () 2018-09-07 complete Mental y, 45 04 d Health- minutes with [address], [id number] [phone] Psychotherap 104016 SNOMED-CT () 2018-06-29 complete Mental y, 45 04 d Health- minutes with [address], [id number] [phone] Psychotherap 531608 SNOMED-CT () 2018-07-03 complete Mental y, 45 04 d Health- minutes with [address], [id number] [phone] Psychotherap 686600 SNOMED-CT () 2018-08-13 complete Mental y, 45 04 d Health- minutes with [address], [id number] [phone] Office or 435645 SNOMED-CT () 2018-07-06 complete Mental other 7 d Health- outpatient [place] visit for [address], [facility], established [id number] patient, [phone] which requires at least 2 of these 3 alcazar components: An expanded problem focused history; An expanded problem focused examination; Medical decision making of low Office or 177582 SNOMED-CT () 2018-09-07 complete Mental other 7 d Health- outpatient [place] visit for [address], [facility], established [id number] patient, [phone] which requires at least 2 of these 3 alcazar components: An expanded problem focused history; An expanded problem focused examination; Medical decision making of low SNOMED-CT () 2018-08-20 complete Mental d [address], [phone] SNOMED-CT () 2018-09-10 complete Mental d [address], [id number] [phone] SNOMED-CT () 2018-09-30 complete Mental d [address], 351883056 [phone] SNOMED-CT () 2019-02-16 complete Public d [address], [address] [phone] SNOMED-CT () 2019-02-18 complete Public [address], [address] [phone] Encounters/Encounter Diagnoses Encounter Encounter Diagnosis Diagnosis Name Diagnosis Date of Service Name Code Code CodeSystem Diagnosis Delivery Location [place] [id number] Post-traumatic SNOMED-CT 2019-04-05 Behavioral stress Health disorder, Clinic , , unspecified , Vital Signs No Information Social History Element Description Description Start End Code CodeSystem AdditionalInfo Date Date SexAssignedAtBirth Female F AdministrativeGender 11-27 Hospital Discharge Instructions Reason For Referral Medical Equipment FDA Assessments
--- OUTSIDE RECORDS SUMMARY | 2019-05-20 11:38 | XMS REPORT | Summary of Care ---
:1985 Author Organization [facility] Address [address] [facility] [place] [address] Care Team Providers Name Role Phone Gabriela Lance Primary Care Provider Reason for Visit Reason Comments Physical for school and possible hep A Encounter Details Date Type Department Care Team Description 04/23/2019 Office Visit Geovanna Rios Gabriela Lance, Physical exam ( Primary Dx); Practice [facility]ICE PRESIDENT EDUCATION Need for vaccination; [address] [facility] Chronic neck pain; [place], [place] [id number] [place] [id number] Acute bacterial rhinosinusitis; [phone] Encounter to establish care Allergies Active Allergy Reactions Severity Noted Date Comments Amoxicillin Dermatologic Reaction 02/03/2019 Hives Bee Sting Swelling 12/14/2016 Ondansetron Respiratory Reaction 12/14/2016 Pt states her throat swelled when given IVP. documented as of this encounter (statuses as of 04/24/2019) Medications Medication Sig Dispensed Refills Start End Date Status Date Doxepin HCl, Take 50 mg by 0 Active Antipruritic, mouth EVERY (DOXEPIN HCL EX) BEDTIME. albuterol Take 2 Puffs 0 Active (PROVENTIL,VENTOLIN) by inhalation 90 mcg/act FOUR TIMES DAILY. fluticasone-salmeter Take 1 INHL by 60 Each 0 Active ol diskus (ADVAIR) inhalation 9 500-50 MCG/DOSE TWICE DAILY. Inhalation AEROSOL POWDER, BREATH ACTIVATEDIndications : Asthma, unspecified asthma severity, unspecified whether complicated, unspecified whether persistent hydrOXYzine HCL Take 20 mg by 0 Active (ATARAX) 10 MG Oral mouth DAILY. Tab Fluoxetine HCl 40 MG Take 2 Caps by 0 Active Oral Cap mouth DAILY. tizanidine Take 1 Tab by 90 Tab 0 Active (ZANAFLEX) 4 MG Oral mouth TWICE 9 TabIndications: Neck DAILY. pain Sofosbuvir-Velpatasv Take 1 Tab by 28 Tab 2 Active ir 400-100 MG Oral mouth DAILY. 9 Tab Omeprazole delayed Take 20 mg by 30 Cap 2 Active rel cap 20 MG Oral mouth DAILY. 9 CAPSULE DELAYED Take this 4 RELEASE hours AFTER your Velpatasvir/So fosbuvir. cyclobenzaprine Take 1 Tab by 30 Tab 0 Active (FLEXERIL) 10 MG mouth THREE 9 Oral TabIndications: TIMES DAILY Back pain, NEEDED (pain). unspecified back location, unspecified back pain laterality, unspecified chronicity, Neck pain etodolac (LODINE) Take 400 mg by 60 Tab 0 Active 400 MG Oral mouth EVERY 9 TabIndications: Back EIGHT HOURS pain, unspecified NEEDED (pain). back location, unspecified back pain laterality, unspecified chronicity, Neck pain methocarbamol Take 1 Tab by 120 Tab 0 Active (ROBAXIN) 500 MG mouth FOUR 0 Oral TabIndications: TIMES DAILY. Chronic neck pain gabapentin Take 300 mg by 0 Active (NEURONTIN) 300 MG mouth THREE Oral Cap TIMES DAILY. doxycycline Take 100 mg by 14 Tab 0 Active (VIBRAMYCIN) 100 MG mouth TWICE 0 Oral TabIndications: DAILY. Acute bacterial rhinosinusitis methocarbamol Take 500 mg by 0 04/23/19 Discontinued (ROBAXIN) 500 MG mouth FOUR 20 (Reorder) Oral Tab TIMES DAILY. documented as of this encounter (statuses as of 04/24/2019) Active Problems Problem Noted Date Chronic neck pain 04/24/2019 Chronic hepatitis C without hepatic coma 02/16/2019 Traumatic pneumothorax 12/14/2016 Closed fracture of multiple ribs of left side 12/14/2016 UTI (urinary tract infection) 12/14/2016 Abdominal pain, unspecified site 04/17/2006 Asthma documented as of this encounter (statuses as of 04/24/2019) Immunizations Name Administration Dates Next Due Influenza [...] How often do you attend protestant or congregation Never 04/23/2019 services? Do you belong to any clubs or organizations such as No 04/23/2019 protestant groups, unions, [email or web address] or athletic groups, or school groups? How [...] Sign Reading Time Taken Comments Blood Pressure 134/58 04/23/2019 8:55 AM EST Pulse 101 04/23/2019 8:55 AM EST Temperature 37.8 04/23/2019 8:55 AM EST C (100 F) Respiratory Rate - - Oxygen Saturation 98% 04/23/2019 8:55 AM EST Inhaled Oxygen Concentration - - Weight 93 kg (205 lb) 04/23/2019 8:55 AM EST Height 157.5 cm (5' 2") 04/23/2019 8:55 AM EST Body Mass Index 37.49 04/23/2019 8:55 AM EST documented in this encounter Patient Instructions Patient InstructionsGabriela Lance NP - 04/23/2019 8:40 AM EST Schedule pap smear for next week - we can do your meningitis vaccine then and Hep A. Reschedule GI appointment with Tootie Gamez NP. MMR Titers today - get blood drawn. ? Doxycycline twice daily for 7 days ? Take Tylenol and Ibuprofen over the counter as needed for pain and symptom relief ? Flonase 2 sprays in each nostril daily ? Salt water gargles, cough drops, and hot tea with lemon or honey to help soothe your throat. ? Get plenty of rest and fluids ? Please call or return if symptoms worsen or fail to improve. You have been prescribed an antibiotic for treatment of your condition. It is important to rememberthat antibiotics treat bacterial infections. In order for them to be effective - you must take ALL of the medication and take it exactly as prescribed. FINISH THE MEDICATION - even if you are feelingbetter. Antibiotics can cause stomach upset and diarrhea. You can help decrease these symptoms by also taking a probiotic while using the medication (Align, Culturelle or the like). Take with food if recommended by the pharmacist. If you are not feeling better in 3-5 days - call or return to the office. Upper Respiratory Infection NATURAL SCIENCE MANAGER: An upper respiratory infection is also called a common cold. It can affect your nose, throat, ears,and sinuses. Common signs and symptoms include the following: Cold symptoms are usually worst for the first 3 to5 days. You may have any of the following: Runny or stuffy nose Sneezing and coughing Sore throat or hoarseness Red, watery, and sore eyes Fatigue Chills and fever Headache, body aches, or sore muscles Seek care immediately if: You have severe headaches, a stiff neck, or eye pain when you look at bright light. You have chest pain or trouble breathing. Contact your healthcare provider if: You have a fever over 102F (39C). Your sore throat gets worse or you see white or yellow spots in your throat. Your symptoms get worse after 3 to 5 days or your cold is not better in 14 days. You have a rash anywhere on your skin. You have large, tender lumps in your neck. You have thick, green or yellow drainage from your nose. You cough up thick yellow, green, thurman, or bloody mucus. You have vomiting for more than 24 hours and cannot keep fluids down. You have a bad earache. You have questions or concerns about your condition or care. Treatment for a cold: There is no cure for the common cold. Colds are caused by viruses and do not get better with antibiotics. Most people get better in 7 to 14 days. You may continue to cough for 2 to 3 weeks. The following may help decrease your symptoms: Decongestants help reduce nasal congestion and help you breathe more easily. If you take decongestant pills, they may make you feel restless or not able to sleep. Do not use decongestant sprays for more than a few days. Cough suppressants help reduce coughing. Ask your healthcare provider which type of cough medicine is best for you. NSAIDs , such as ibuprofen, help decrease swelling, pain, and fever. NSAIDs can cause stomach bleeding or kidney problems in certain people. If you take blood thinner medicine, always ask your healthcare provider if NSAIDs are safe for you. Always read the medicine label and follow directions. Acetaminophen decreases pain and fever. It is available without a doctor' s order. Ask how muchto take and how often to take it. Follow directions. Acetaminophen can cause liver damage if not taken correctly. Manage your cold: Use a humidifier or vaporizer. Use a cool mist humidifier or a vaporizer to increase air moisture in your home. This may make it easier for you to breathe and help decrease your cough. Gargle with warm salt water to help your sore throat feel better. Make salt water by adding teaspoon salt to 1 cup warm water. You may also suck on hard candy or throat lozenges. You may usea sore throat spray. Use saline nasal drops to help relieve your congestion. Drink liquids as directed. Liquids help keep your air passages moist and help you cough up mucus. Ask how much liquid to drink each day and which liquids are best for you. Rest as much as possible. Slowly start to do more each day. Prevent spreading your cold to others: Try to stay away from other people during the first 2 to 3 days of your cold when it is more easily spread. Do not share food or drinks. Do not share hand towels with household members. Wash your hands often, especially after you blow your nose. Turn away from other people and cover your mouth and nose with a tissue when you sneeze or cough. Follow up with your healthcare provider as directed: Write down your questions so you remember to ask them during your visits. 2016 [employer]. Information is for End User's use only and may not be sold, redistributed or otherwise used for commercial purposes. All illustrations and images included in CareNotes are the copyrighted property of A.D.A[employer]M., Inc. or [employer]. The above information is an lab aide only. It is not intended as medical advice for individual conditions or treatments. Talk to your doctor, nurse or pharmacist before following any medical regimen to see if it is safe and effective for you. documented in this encounter Progress Notes Gabriela Lance NP - 04/23/2019 8:40 AM EST PATIENT: Antonia Arriaga : 1985 DATE OF SERVICE: 04/23/2019 CHIEF COMPLAINT: Chief Complaint Patient presents with Physical for school and possible hep A Subjective HISTORY OF PRESENT ILLNESS: Antonia Arriaga is a 33-y.o. female. HPI Has been sick with URI symptoms for about 2 weeks. Cough, congestion sore throat fever. 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 Needs titers for MMR, meningitis vaccine, and requesting a Hep A vaccine today. Concerned that breasts become painful and she finds lumps in both breasts. Has been worse over the last week. Pain moves to different spots. Has been going on for the last year - is worse when not on her period than when she is. Seen by Bing Hernandez NP on 03/22 for back pain - given flexeril etodolac and physical therapy referral. Has not started physical therapy yet and needs transportation first. Still plans to do this. Significant other accompanying patient states that the only medication that worked for his back was Soma and requesting an rx for her for this medication. 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 LMP: Since being on hep c treatment her periods are coming early and much longer and heavier than normal. LMP was last week. Pap (21-65): 2016. Family or personal history of breast or ovarian cancer: Not sure. Thinks maybe her grandmother had breast cancer. Eye Exam: January 2019 - wears glasses, no eye problems. Dental Exam: Almost a year ago, wears a top plate, will need to get bottoms replaced as well. Specialists: GI - for chronic Hep C. IVDU several years ago. No current risk factors. Sees Tootie Gamez NP regularly, last visit 03/02/19. Found new Hep C infection at that visit and is being treated. She denies current or recent IVDU. Missed appointment with GI yesterday. Will reschedule this. [facility] - Anand Aguilar (therapist), psychiatrist is Dr. Benjamin who prescribes her fluoxetine, gabapentin, doxepin, and hydroxyzine. CARS - Once a week, every Friday. Diet: Regular. Water: Since starting school is trying to drink more water - 5-6 bottles of water. Exercise: Walking more for school, going up and down the stairs. Past Medical History: Diagnosis Date Asthma Chronic [...] week Gets together: Once a week Attends congregation service: Never Active member of club or [...] Not working. 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 4 children REVIEW OF SYSTEMS: Review of Systems Constitutional: Positive for diaphoresis (sometimes night sweats) and weight loss (intentional). Negative for chills, fever and malaise/fatigue. HENT: Positive for ear pain and sore throat. Negative for congestion, hearing loss and sinus pain. Eyes: Negative for blurred vision. Respiratory: Positive for cough (uri) and shortness of breath (when walking long distance). Cardiovascular: Negative for chest pain, palpitations and leg swelling. Gastrointestinal: Positive for constipation. Negative for abdominal pain, blood in stool, diarrhea, nausea and vomiting. Genitourinary: Negative for dysuria, frequency, hematuria and urgency. Musculoskeletal: Positive for back pain and neck pain. Negative for falls, joint pain and myalgias. Skin: Negative for rash. Neurological: Negative for dizziness, tingling, tremors, sensory change, weakness and headaches. Psychiatric/Behavioral: Negative for depression. The patient is not nervous/ anxious. Objective PHYSICAL EXAM: VITALS: BP 134/58 (BP Location: Left arm, Patient Position: Sitting) | Pulse 101 | Temp 100 F(37.8 C) (Tympanic) | Ht 5' 2" (1.575 m) | Wt 205 lb (93 kg) | SpO2 98% | BMI 37.49 kg/m Body mass index is 37.49 kg/m. Physical Exam Vitals signs and nursing note reviewed. Constitutional: Appearance: Normal appearance. She is well-developed. HENT: Head: Normocephalic and atraumatic. Right Ear: Hearing, tympanic membrane, ear canal and external ear normal. Left Ear: Hearing, tympanic membrane, ear canal and external ear normal. Nose: Mucosal edema and rhinorrhea present. Rhinorrhea is purulent. Right Sinus: Maxillary sinus tenderness and frontal sinus tenderness present. Left Sinus: Maxillary sinus tenderness and frontal sinus tenderness present. Mouth/Throat: Lips: [place]. Mouth: Mucous membranes are moist. Pharynx: Oropharynx is clear. Uvula midline. Posterior oropharyngeal erythema present. Eyes: General: Lids are normal. Vision grossly intact. Gaze aligned appropriately. Extraocular Movements: Extraocular movements intact. Conjunctiva/sclera: Conjunctivae normal. Pupils: Pupils are equal, round, and reactive to light. Neck: Musculoskeletal: Normal range of motion and neck supple. Thyroid: No thyroid mass or thyromegaly. Vascular: No carotid bruit. Trachea: Trachea normal. Cardiovascular: Rate and Rhythm: Normal rate and regular rhythm. Pulses: Normal pulses. Heart sounds: Normal heart sounds. No murmur. No friction rub. No gallop. Pulmonary: Effort: Pulmonary effort is normal. No respiratory distress. Breath sounds: Normal breath sounds. Abdominal: General: Abdomen is flat. Bowel sounds are normal. Palpations: Abdomen is soft. There is no hepatomegaly or splenomegaly. Tenderness: There is no abdominal tenderness. There is no right CVA tenderness or left CVA tenderness. Musculoskeletal: Normal range of motion. Right lower leg: No edema. Left lower leg: No edema. Lymphadenopathy: Head: Right side of head: No submental, submandibular, tonsillar, preauricular or posterior auricular adenopathy. Left side of head: No submental, submandibular, tonsillar, preauricular or posterior auricular adenopathy. Cervical: No cervical adenopathy. Upper Body: Right upper body: No supraclavicular adenopathy. Left upper body: No supraclavicular adenopathy. Skin: General: Skin is warm and dry. Neurological: General: No focal deficit present. Mental Status: She is alert and oriented to person, place, and time. Cranial Nerves: Cranial nerves are intact. Sensory: Sensation is intact. Deep Tendon Reflexes: Reflexes are normal and symmetric. Psychiatric: Attention and Perception: Attention and perception normal. Mood and Affect: Mood and affect normal. Speech: Speech normal. Behavior: Behavior normal. Behavior is cooperative. ASSESSMENT / IMPRESSION: ICD-9-CM ICD-10-CM 1. Physical exam V70.9 Z00.00 2. Need for vaccination V05.9 Z23 RUBEOLA IGG AB MUMPS VIRUS IGG ANTIBODY RUBELLA IGG (SEROLOGY) RUBELLA IGG (SEROLOGY) MUMPS VIRUS IGG ANTIBODY RUBEOLA IGG AB 3. Chronic neck pain 723.1 M54.2 methocarbamol (ROBAXIN) 500 MG Oral Tab 338.29 G89.29 4. Acute bacterial rhinosinusitis 461.9 J01.90 doxycycline (VIBRAMYCIN) 100 MG Oral Tab B96.89 5. Encounter to establish care V65.8 Z76.89 Plan 1. Need for vaccination -Will do MMR titers today. -Delay meningitis and Hep A vaccines d/t current febrile illness. She can return when feeling better for these. - RUBEOLA IGG AB; Future - MUMPS VIRUS IGG ANTIBODY; Future - RUBELLA IGG (SEROLOGY); Future - RUBELLA IGG (SEROLOGY) - MUMPS VIRUS IGG ANTIBODY - RUBEOLA IGG AB 2. Chronic neck pain Will refill her robaxin she was getting from Dr. Montano. No soma d/t history of addiction. - methocarbamol (ROBAXIN) 500 MG Oral Tab; Take 1 Tab by mouth FOUR TIMES DAILY. Dispense: 120 Tab;Refill: 0 3. Acute bacterial rhinosinusitis -2 weeks illness, treat with doxycycline. - doxycycline (VIBRAMYCIN) 100 MG Oral Tab; Take 100 mg by mouth TWICE DAILY. Dispense: 14 Tab; Refill: 0 4. Encounter to establish care Prior PCP Dr. Montano. 5. Physical exam Normal except URI, treating with antibiotics. Will finish school paperwork when she comes back for her other vaccines. She's also due for a pap smear which she will schedule next week, will do breast exam at that time for c/o intermittent breast pain. Author: Gabriela Lance NP 04/24/2019 06:55 documented in this encounter Plan of Treatment Date Type Specialty Care Team Description 04/30/2019 Office Visit Family Practice Gabriela Lance NP [address] [place] [address] [phone] 04/30/2019 Office Visit Family Practice Gabriela Lance NP [address] [place] [address] [phone] Name Type Priority Associated Diagnoses Date/Time RUBEOLA IGG AB Lab Routine Need for vaccination 04/23/2019 9:58 AM EST MUMPS VIRUS IGG ANTIBODY Lab Routine Need for vaccination 04/23/2019 9:58 AM EST Name Type Priority Associated Diagnoses Order Schedule RUBEOLA IGG AB Lab Routine Need for vaccination Expected: 04/23/2019 (Approximate), Expires: 04/23/2020 MUMPS VIRUS IGG ANTIBODY Lab Routine Need for vaccination Expected: 2019 (Approximate), Expires: 04/23/2020 Health Maintenance Due Date Last Done Comments [...] this topic documented as of this encounter Procedures Procedure Name Priority Date/Time Associated Diagnosis Comments RUBELLA IGG Routine 04/23/2019 9:58 AM Need for vaccination Results for this (SEROLOGY) EST procedure are in the results section. documented in this encounter Results RUBELLA IGG (SEROLOGY) (04/23/2019 9:58 AM EST) Rubella Igg Antibody 86.7 >10.0 IU/ml [facility] Specimen Blood - Blood specimen (specimen) Narrative Performed At Rubella Interpretation: [facility] Immune Greater than or equal to 15 IU/ml Equivocal 10 -14.9 IU/ml Non-immune Less than 10 IU/ml Performing Organization Address City/State/Zipcode Phone Number [facility] [address] [address] [phone] documented in this encounter Visit Diagnoses Diagnosis Need for vaccination Need for prophylactic vaccination and inoculation against unspecified single disease Chronic neck pain Cervicalgia Acute bacterial rhinosinusitis Encounter to establish care Other reasons for seeking consultation Physical exam documented in this encounter documented as of this encounter
[2019-05-20 12:49] VITALS: BP 141/72
[2019-05-20] MEDS ORDERED: Ibuprofen TAB* 600 MG PO ONE (14:04)
--- NOTE | 2019-05-20 14:11 | UC ---
Cardiac HPI - HPI Summary HPI Summary: 33-year-old woman comes in with a chief complaint of left chest and posterior pelvic pain after a fall 2 days ago. Patient reports she fell down 3 steps and when she landed she struck her left posterior chest and her sacral and coccyx area. She's had pain always locations ever since. Chest pain is worse with coughing or taking deep breath and movement. The pelvic pain is worse with movement. No plan any weakness or numbness or shortness of breath at rest. Has take some ibuprofen which does help some with the pain but not very much. No cough no chest congestion no sputum production. Has not seen any blood in her urine. Patient denies striking her head when she fell. She has noticed intermittent neck pain and headaches since that time. - History of Current Complaint Chief Complaint: UCBackPain Stated Complaint: BACK PAIN Time Seen by Provider: 05/20/19 13:50 Hx Last Menstrual Period: Pain Intensity: 10 - Allergy/Home Medications Allergies/Adverse Reactions: Allergies Allergy/AdvReac Type Severity Reaction Status Date / Time acetaminophen Allergy Anaphylatic Verified 05/20/19 12:49 Shock amoxicillin Allergy Hives/Diff. Verified 04/07/19 10:37 Breathing/I tching bee venom protein (honey bee) Allergy Anxiety Verified 04/07/19 10:37 garlic Allergy Swelling Verified 04/07/19 10:37 ondansetron [From Zofran] Allergy Difficulty Verified 04/07/19 10:37 Breathing pollen extracts Allergy Sneezing Verified 04/07/19 10:37 Home Medications: Home Medications Fluoxetine HCl [Prozac] 80 mg PO DAILY 04/07/19 [History Confirmed 05/20/19] Doxepin HCl 50 mg PO BEDTIME 05/20/19 [History Confirmed 05/20/19] Gabapentin CAP(*) [Neurontin 100 mg CAP(*)] 300 mg PO TID 05/20/19 [History Confirmed 05/20/19] PMH/Surg Hx/FS Hx/Imm Hx Previously Healthy: Yes Other History Of: Negative For: Anticoagulant Therapy - Surgical History Surgical History: Yes Surgery Procedure, Year, and Place: 4 C-SEC (2009/2010/2014) [facility]. 2 [facility] (2008). 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 Smoking Status (MU): Light Every Day Tobacco Smoker Type: Cigarettes Amount Used/How Often: 1 cig/day Length of Time of Smoking/Using Tobacco: 11 years Have You Smoked in the Last Year: Yes Household Exposure Type: Cigarettes - Immunization History Most Recent Influenza Vaccination: Never Most Recent Tetanus Shot: 2016 Most Recent Pneumonia Vaccination: none Review of Systems All Other Systems Reviewed And Are Negative: Yes Constitutional: Positive: Negative Skin: Positive: Negative Eyes: Positive: Negative ENT: Positive: Negative Respiratory: Positive: Other - SEE HPI Cardiovascular: Positive: Other - SEE HPI Gastrointestinal: Positive: Negative Genitourinary: Positive: Negative. Negative: Hematuria Motor: Positive: Negative Neurovascular: Positive: Negative Musculoskeletal: Positive: Other: - SEE HPI Neurological/Mental Status: Positive: Headache - SEE HPI Psychological: Positive: Negative Is Patient Immunocompromised?: No Physical Exam Triage Information Reviewed: Yes Appearance: Well-Appearing, Well-Nourished, Pain Distress - MILD WITH ROM AND EXAM Vital Signs: Initial Vital Signs Temp 98.2 F 05/20/19 12:44 Pulse 91 05/20/19 12:44 Resp 20 05/20/19 12:44 BP 141/72 05/20/19 12:44 Pulse Ox 98 05/20/19 12:44 Vital Signs Reviewed: Yes Eye Exam: Normal Eyes: Positive: Conjunctiva Clear, Other: - PERRLA EOMI. No photophobia. ENT: Positive: TMs normal - No hemotympanum. Neck: Positive: Supple, Other: - Patient reports some tenderness to palpation in the mid line of the upper thoracic spine Respiratory: Positive: Lungs clear, Normal breath sounds, No respiratory distress, Other: - Tender to palpation lower thoracic back to the left of the midline Cardiovascular: Positive: RRR Abdomen Description: Positive: Nontender Musculoskeletal: Positive: Other: - Para to palpation over the sacrum and tailbone. Lumbar spine is nontender to palpation. Neurological: Positive: Alert Psychological: Positive: Age Appropriate Behavior Skin Exam: Normal - Assessment/Plan Course Of Treatment: Language Tutor: Kenzie Montana S, ([id number]) Kitchen Clerk: NUANCE, (NUANCE) Report Date: 05/20/2019 15:03:00 Report Status: Final Start of Report Content Patient Name: MINO MOCK Medical Record#: [id number] Ordering Physician: Rohith Hill MD Acct.#: [id number] : Age: 33 Sex: F Location: [facility] Exam Date: 05/20/19 1404 ADM Status: REG ER Order Information: SACRUM/COCCYX 2+ VWS Accession Number : [id number] CPT: 44045 Indication: Left posterior pain. 2 views of the sacrum and coccyx demonstrates sacrum and coccyx to be intact. No fracture is identified. Sacral foramina are intact. Sacroiliac joints are intact. IMPRESSION : No fracture of the sacrum is noted. <Electronically signed by Kenzie Montana MD in OV> 05/20/19 1500 Dictated By: Kenzie Montana MD Dictated Date/Time: 05/20/191442 Transcribed Date/Time: 05/20/191442 Copy to: CC:No Primary Care Phys,NOPCP ; Rohith Hill MD Imaging - [facility] Imaging - [facility] [address] [address] ph [phone]) ph ) ph ([phone]) End of Report Content Language Tutor: Kenzie Montana S, ([id number]) Kitchen Clerk: JENIFER, (NUANCE) Report Date: 05/20/2019 14:47:00 Report Status: Final Start of Report Content Patient Name: MINO MOCK Medical Record#: [id number] Ordering Physician: Rohith Hill MD Acct.#: [id number] : Age: 33 Sex: F Location: [facility] Exam Date: 05/20/19 1404 ADM Status: REG ER Order Information: RIBS LT UNI W/PA CH MIN 3 VWS Accession Number: [id number] CPT: 98676 Indication: Left rib injury. 3 views of left ribs and dual energy PA views demonstrate deformity of the left ninth rib posterior laterally. This is consistent with a fracture. Dual-energy PA views demonstrate no pneumothorax. IMPRESSION: Deformity of the left ninth rib likely representing a fracture with no evidence of pneumothorax. <Electronically signed by Kenzie Montana MD in OV> 05/20/191442 Dictated By: Kenzie Montana MD Dictated Date/Time: 1441 Transcribed Date/Time: 05/20/191441 Copy to: CC:No Primary Care Phys,NOPCP ; Rohith Hill MD Imaging - [facility] Imaging - [facility] Imaging - [facility] [address] [address] ph ) ph ([phone]) ph ([phone]) End of Report Content Language Tutor: Kenzie Montana S ([id number]) Kitchen Clerk: JENIFER, (NUANCE) Report Date: 05/20/2019 14:47:00 Report Status: Final Start of Report Content Patient Name: MINO MOCK Medical Record#: [id number] Ordering Physician: Rohith Hill MD Acct.#: [id number] : Age: 33 Sex: F Location: [facility] Exam Date: 05/20/19 1404 ADM Status: REG ER Order Information: PELVIS 1-2 VWS Accession Number: [id number] CPT: 34536 Indication: Left posterior hip pain. Single view of the pelvis demonstrates no fracture. Pelvic ring is intact. No other bone or joint abnormalities identified. IMPRESSION: No fracture of the pelvis or right hip is noted. < Electronically signed by Kenzie Montana MD in OV> 05/20/191441 Dictated By: Kenzie Montana MD Dictated Date/Time: 05/20/191440 Transcribed Date/Time: 05/20/191440 Copy to: CC:No Primary Care Phys,NOPCP ; Rohith Hill MD Imaging - [facility] Imaging - [facility] Imaging - [facility] [address] [place] [address] [address] [address] ph ([phone]) ph ([phone]) ph ([phone]) ===== End of Report Content Discussed the x-rays with the patient. No blood in the urine. Patient given incentive spirometer here in clinic. And treatment ibuprofen and then oxycodone as she is allergic to acetaminophen as needed and follow-up with her primary care doctor. Patient can use a donut pillow for the coccyx injury. Patient's to get reevaluated if There is any signs of infection or shortness of breath or any questions or concerns. - Clinical Impression Provider Diagnosis: Left rib fracture, Contusion of coccyx, Sacral contusion Discharge ED - Sign-Out/Discharge Documenting (check all that apply): Patient Departure All imaging exams completed and their final reports reviewed: Yes - Discharge Plan Condition: Stable Disposition: HOME Patient Education Materials: Coccyx Injury (ED), Rib Fracture (ED) Referrals: [facility] [place] [facility] [Outside] [facility] [Outside] Additional Instructions: FOLLOW UP WITH YOUR DOCTOR. Consider using a donut pillow to take pressure off of your coccyx when you sit. GET REEVALUATED SOONER IF NOT IMPROVED OR WORSE; FEVER, SIGNS OF INFECTION, PAIN , SHORTNESS OF BREATH, YOU FEEL ILL OR ANY QUESTIONS OR CONCERNS. USE THE INCENTIVE SPIROMETER EVERY 4 HOURS OR MORE FREQUENTLY TO HELP AVOID A RESPIRATORY INFECTION. - Billing Disposition and Condition Condition: STABLE Disposition: Home
== END 2019-05-20 16:12 | disposition home or self-care (01) ==
LOC: UCEAST 11:32
DX: S22.32XA Fracture of one rib, left side, initial encounter for closed fracture (principal); S30.0XXA Contusion of lower back and pelvis, initial encounter; F17.210 Nicotine dependence, cigarettes, uncomplicated; Z88.6 Allergy status to analgesic agent; Z88.0 Allergy status to penicillin; Z91.030 Bee allergy status; Z91.018 Allergy to other foods; Z88.8 Allergy status to other drugs, medicaments and biological substances; Z91.09 Other allergy status, other than to drugs and biological substances; W10.9XXA Fall (on) (from) unspecified stairs and steps, initial encounter; Y92.9 Unspecified place or not applicable
CPT/HCPCS: 72170; 72220; 81003; 99212; A9270-GY; G0463